=== PATIENT | male | born 1960 | race Caucasian/White ===

== ENCOUNTER 2017-01-02 14:02 | Emergency (ER) | payer MEDICARE, SELFPAY ==
[2017-01-02] MEDS ORDERED: Ondansetron 4 MG/2 ML SDV IVPUSH ONE (15:10)
[2017-01-02] MEDS ORDERED: LORazepam 2 MG/ML MDV IVPUSH ONE (15:11)
[2017-01-02] MEDS ORDERED: HYDROmorphone 0.5 MG/0.5 ML Syringe IVPUSH ONE (15:11)
--- NOTE | 2017-01-02 15:13 | EDM.PDOC ---
ED HPI GI/ABDOMINAL - General Chief Complaint: Abdominal Pain Stated Complaint: ABD PAIN Time Seen by Provider: 01/02/17 15:12 Source: Reports: Patient History Limitations: Reports: No limitations - History of Present Illness INITIAL COMMENTS - FREE TEXT/NARRATIVE: pt arrived with pain in the rt upper abdomn. Timing/Duration: Reports: Hour(s):, Getting worse Location: other (pain in left flank area.) Quality: Reports: stabbing, throbbing Associated Symptoms: Reports: malaise - Related Data Allergies/ADRs: Allergies Allergy/AdvReac Type Severity Reaction Status Date / Time No Known Allergies Allergy Verified 07/23/14 21:16 Home Meds: Home Meds ARIPiprazole [Abilify] 30 mg PO DAILY 07/23/14 [History] LORazepam [Ativan] 1 mg PO BEDTIME PRN 07/23/14 [History] buPROPion HCl [Bupropion Xl] 150 mg PO DAILY 07/23/14 [History] Cariprazine Hydrochloride [Vraylar] 4.5 mg PO DAILY 05/09/16 [History] Past Medical History HEENT History: Reports: Impaired vision Genitourinary History: Reports: Renal calculus Psychiatric History: Reports: Anxiety, Bipolar, Depression - Infectious Disease History Infectious Disease History: Reports: Chicken pox - Past Surgical History Male Surgical History: Reports: Lithotripsy (ESWL) Social & Family History - Tobacco Use Smoking Status *Q: Never Smoker Second Hand Smoke Exposure: No - Caffeine Use Caffeine Use: Reports: None - Alcohol Use Days Per Week of Alcohol Use: 0 - Recreational Drug Use Recreational Drug Use: No ED ROS GENERAL - Review of Systems Review Of Systems: See Below Constitutional: Reports: no symptoms HEENT: Reports: No symptoms Respiratory: Reports: No Symptoms Cardiovascular: Reports: No symptoms Endocrine: Reports: no symptoms GI/Abdominal: Reports: Abdominal pain, Other (Pain in rt flank area and pain in rt flank. ) ED EXAM, GI/ABD - Physical Exam Exam: See Below Text/Narrative:: Pt arrived with pain in rt upper abdoman and rt flank. Exam Limited By: No limitations General Appearance: alert, anxious Eyes: bilateral: normal appearance, EOMI Ears: normal TMs Nose: normal inspection Throat/Mouth: Normal inspection Head: atraumatic Neck: normal inspection Respiratory/Chest: no respiratory distress Cardiovascular: regular rate, rhythm GI/Abdominal: tenderness, other (pt is tender in the rt upper abdoman and rt flank) (Male) Exam: Deferred Rectal (Males) Exam: Deferred Back Exam: normal inspection Extremities: normal inspection Neurological: alert, oriented, normal cognition Psychiatric: anxious, other ( Pt is shaking and very agitated. ) Course - Vital Signs Last Recorded V/S: Last Vital Signs Temp 36.2 C 01/02/17 14:51 Pulse 81 01/02/17 17:26 Resp 18 01/02/17 14:51 BP 130/71 01/02/17 17:26 Pulse Ox 98 01/02/17 14:51 - Orders/Labs/Meds Orders: Active Orders 24 hr Category Date Time Status Abdomen Pelvis wo Cont [CT] Stat Exams 01/02/17 16:36 Taken Sodium Chloride 0.9% [Normal Saline] 1,000 ml Med 01/02/17 15:15 Active IV ASDIRECTED Sodium Chloride 0.9% [Saline Flush] Med 01/02/17 15:09 Active 10 ml FLUSH ASDIRECTED PRN Saline Lock Insert [OM.PC] Routine Oth 01/02/17 15:09 Ordered Medication Orders Sodium Chloride (Normal Saline) 1,000 mls @ 999 mls/hr IV ASDIRECTED DUANE Last Admin: 01/02/17 15:25 Dose: 999 mls/hr Sodium Chloride (Saline Flush) 10 ml FLUSH ASDIRECTED PRN PRN Reason: Keep Vein Open Last Admin: 01/02/17 17:23 Dose: 10 ml Admin: 01/02/17 15:25 Dose: 10 ml Labs: Laboratory Tests 01/02/17 01/02/17 01/02/17 Range/Units 15:13 15:13 15:51 WBC 13.1 H (4.5-11.0) K/uL RBC 5.85 (4.30-5.90) M/uL Hgb 16.2 H (12.0-15.0) g/dL Hct 46.9 (40.0-54.0) % MCV 80 (80-98) fL MCH 28 (27-31) pg MCHC 35 (32-36) % Plt Count 391 (150-400) K/uL Neut % (Auto) 86 H (36-66) % Lymph % (Auto) 9 L (24-44) % [place] % (Auto) 5 (2-6) % Eos % (Auto) 0 L (2-4) % Baso % (Auto) 0 (0-1) % Sodium 140 (140-148) mmol/L Potassium 4.4 (3.6-5.2) mmol/L Chloride 104 (100-108) mmol/L Carbon Dioxide 23 (21-32) mmol/L Anion Gap 13.0 (5.0-14.0) mmol/L BUN 14 (7-18) mg/dL Creatinine 1.7 H (0.8-1.3) mg/dL Est Cr Clr Drug Dosing 44.28 mL/min Estimated GFR (MDRD) 42 L (>60) Glucose 117 H (74-106) mg/dL Calcium 9.2 (8.5-10.1) mg/dL Total Bilirubin 0.8 (0.2-1.0) mg/dL AST 22 (15-37) U/L ALT 20 (12-78) U/L Alkaline Phosphatase 101 (46-116) U/L C-Reactive Protein 0.46 H (0.0-0.3) mg/dL Total Protein 8.4 H (6.4-8.2) g/dL Albumin 3.8 (3.4-5.0) g/dL Globulin 4.6 H (2.3-3.5) g/dL Albumin/Globulin Ratio 0.8 L (1.2-2.2) Urine Color Yellow Urine Appearance Clear Urine pH 6.0 (4.5-8.0) Ur Specific [place] 1.015 (1.008-1.030) Urine Protein Negative (NEGATIVE) mg/dL Urine Glucose (UA) Normal (NEGATIVE) mg/dL Urine Ketones 15 H (NEGATIVE) mg/dL Urine Occult Blood Large (NEGATIVE) Urine Nitrite Negative (NEGAITVE) Urine Bilirubin Negative (NEGATIVE) Urine Urobilinogen Normal (NORMAL) mg/dL Ur Leukocyte Esterase Negative (NEGATIVE) Urine RBC 10-20 H (0-5) Urine WBC 0-5 (0-5) Ur Epithelial Cells Rare Amorphous Sediment Not seen Urine Bacteria Few Urine Mucus Numerous Urine Opiates Screen (NEGATIVE) Ur Oxycodone Screen (NEGATIVE) Urine Methadone Screen (NEGATIVE) Ur Propoxyphene Screen (NEGATIVE) Ur Barbiturates Screen (NEGATIVE) Ur Tricyclics Screen (NEGATIVE) Ur Phencyclidine Scrn (NEGATIVE) Ur Amphetamine Screen (NEGATIVE) U Methamphetamines Scrn (NEGATIVE) Urine MDMA Screen (NEGATIVE) U Benzodiazepines Scrn (NEGATIVE) U Cocaine Metab Screen (NEGATIVE) U Marijuana (THC) Screen (NEGATIVE) 01/02/17 Range/Units 15:51 WBC (4.5-11.0) K/uL RBC (4.30-5.90) M/uL Hgb (12.0-15.0) g/dL Hct (40.0-54.0) % MCV (80-98) fL MCH (27-31) pg MCHC (32-36) % Plt Count (150-400) K/uL Neut % (Auto) (36-66) % Lymph % (Auto) (24-44) % Bradford % (Auto) (2-6) % Eos % (Auto) (2-4) % Baso % (Auto) (0-1) % Sodium (140-148) mmol/L Potassium (3.6-5.2) mmol/L Chloride (100-108) mmol/L Carbon Dioxide (21-32) mmol/L Anion Gap (5.0-14.0) mmol/L BUN (7-18) mg/dL Creatinine (0.8-1.3) mg/dL Est Cr Clr Drug Dosing mL/min Estimated GFR (MDRD) (>60) Glucose (74-106) mg/dL Calcium (8.5-10.1) mg/dL Total Bilirubin (0.2-1.0) mg/dL AST (15-37) U/L ALT (12-78) U/L Alkaline Phosphatase (46-116) U/L C-Reactive Protein (0.0-0.3) mg/dL Total Protein (6.4-8.2) g/dL Albumin (3.4-5.0) g/dL Globulin (2.3-3.5) g/dL Albumin/Globulin Ratio (1.2-2.2) Urine Color Urine Appearance Urine pH (4.5-8.0) Ur Specific [place] (1.008-1.030) Urine Protein (NEGATIVE) mg/dL Urine Glucose (UA) (NEGATIVE) mg/dL Urine Ketones (NEGATIVE) mg/dL Urine Occult Blood (NEGATIVE) Urine Nitrite (NEGAITVE) Urine Bilirubin (NEGATIVE) Urine Urobilinogen (NORMAL) mg/dL Ur Leukocyte Esterase (NEGATIVE) Urine RBC (0-5) Urine WBC (0-5) Ur Epithelial Cells Amorphous Sediment Urine Bacteria Urine Mucus Urine Opiates Screen Negative (NEGATIVE) Ur Oxycodone Screen Negative (NEGATIVE) Urine Methadone Screen Negative (NEGATIVE) Ur Propoxyphene Screen Negative (NEGATIVE) Ur Barbiturates Screen Negative (NEGATIVE) Ur Tricyclics Screen Negative (NEGATIVE) Ur Phencyclidine Scrn Negative (NEGATIVE) Ur Amphetamine Screen Negative (NEGATIVE) U Methamphetamines Scrn Negative (NEGATIVE) Urine MDMA Screen Negative (NEGATIVE) U Benzodiazepines Scrn Positive H (NEGATIVE) U Cocaine Metab Screen Negative (NEGATIVE) U Marijuana (THC) Screen Negative (NEGATIVE) Meds: Medications Generic Name Dose Route Start Last Admin Trade Name Freq PRN Reason Stop Dose Admin Sodium Chloride 1,000 mls @ 999 mls/hr 01/02/17 15:15 01/02/17 15:25 Normal Saline IV 999 mls/hr ASDIRECTED DUANE Administration Sodium Chloride 10 ml 01/02/17 15:09 01/02/17 17:23 Saline Flush FLUSH 10 ml ASDIRECTED PRN Administration Keep Vein Open Discontinued Medications Generic Name Dose Route Start Last Admin Trade Name Freq PRN Reason Stop Dose Admin Hydromorphone HCl 0.5 mg 01/02/17 15:11 01/02/17 15:24 Dilaudid IVPUSH 01/02/17 15:12 0.5 mg ONETIME ONE Administration Ketorolac Tromethamine 30 mg 01/02/17 17:20 01/02/17 17:23 Toradol IVPUSH 01/02/17 17:21 30 mg ONETIME ONE Administration Lorazepam 0.5 mg 01/02/17 15:11 01/02/17 15:21 Ativan IVPUSH 01/02/17 15:12 0.5 mg ONETIME ONE Administration Ondansetron HCl 4 mg 01/02/17 15:10 01/02/17 15:24 Zofran IVPUSH 01/02/17 15:11 4 mg ONETIME ONE Administration Tamsulosin HCl 0.4 mg 01/02/17 17:19 01/02/17 17:22 Flomax PO 04/06/17 17:20 0.4 mg ONETIME ONE Administration - Re-Assessments/Exams Free Text/Narrative Re-Assessment/Exam: 01/02/17 17:21 Pt arrived with pain in rt upper abdoman nd rt flank. He was very agitated on arrival. His urine showed alot of rbcs. He had a cat scan without contrast which showed a 4 mm stone in the proximal ureter. Pt was given torodol and flomax. 01/02/17 18:55 Pt has remained comfortable. will discharge at this time. 01/02/17 19:03 Pt has been out of his psych meds and he was encouraged to fill them as soon as possible. Departure - Departure Time of Disposition: 18:55 Disposition: Home, Self-Care 01 Condition: fair Clinical Impression: Ureteral calculus, right, Anxiety Instructions: Kidney Stones, [id number], Panic Attacks, [id number] Referrals: Hang Renae MD [Primary Care Provider] - Forms: ED Department Discharge Care Plan Goals: appt with Dr Renae if he does not pass the stone, strain all urine, push fluids , flomax .4 1 tab daily, torodol 10mg q6h prn for pain, rtc if pt becomes severely uncomfortable. - My Orders Last 24 Hours: My Active Orders 01/02/17 15:09 Sodium Chloride 0.9% [Saline Flush] 10 ml FLUSH ASDIRECTED PRN Saline Lock Insert [OM.PC] Routine 01/02/17 15:15 Sodium Chloride 0.9% [Normal Saline] 1,000 ml IV ASDIRECTED 01/02/17 16:36 Abdomen Pelvis wo Cont [CT] Stat - Assessment/Plan Last 24 Hours: My Active Orders 01/02/17 15:09 Sodium Chloride 0.9% [Saline Flush] 10 ml FLUSH ASDIRECTED PRN Saline Lock Insert [OM.PC] Routine 01/02/17 15:15 Sodium Chloride 0.9% [Normal Saline] 1,000 ml IV ASDIRECTED 01/02/17 16:36 Abdomen Pelvis wo Cont [CT] Stat
[2017-01-02] MEDS ORDERED: Sodium Chloride 0.9% 1,000 ML IV SCH (15:15)
[2017-01-02] MEDS: Sodium Chloride 0.9% 10 ML Syringe FLUSH PRN ×2 (15:25→17:23)
[2017-01-02] MEDS ORDERED: Tamsulosin 0.4 MG Cap.ER PO ONE (17:19)
[2017-01-02] MEDS ORDERED: Ketorolac 30 MG/ML SDV IVPUSH ONE (17:20)
[2017-01-02 17:27] VITALS: BP 130/71
== END 2017-01-02 19:10 | disposition home or self-care (01) ==
LOC: JP.ED 14:02
DX: N13.2 Hydronephrosis with renal and ureteral calculous obstruction (principal); F41.9 Anxiety disorder, unspecified; F31.9 Bipolar disorder, unspecified; F32.9 Major depressive disorder, single episode, unspecified; Z79.899 Other long term (current) drug therapy; Z87.442 Personal history of urinary calculi
CPT/HCPCS: 36415; 74176; 80053; 80305; 81001; 85025; 86140; 96361; 96374; 96375; 96376; 99284; A9270; J1170; J1885; J2060; J2405; J7040; J7050

== ENCOUNTER 2017-01-11 18:41 | Emergency (ER) | payer MEDICARE, SELFPAY ==
[2017-01-11 19:07] VITALS: BP 143/92
--- NOTE | 2017-01-11 20:31 | EDM.PDOC ---
[id number] 4d STONES Time Seen by Provider: 01/11/17 19:15 Source: Reports: Patient, Family History Limitations: Reports: No limitations - History of Present Illness INITIAL COMMENTS - FREE TEXT/NARRATIVE: 56-year-old male with intermittent right abdominal and flank pain for the past 2 weeks. A right ureteral stone was confirmed a CT scan over a week ago, he took Flomax for 5 days and occasional ketorolac but his symptoms seem to be worse today. No nausea or vomiting. He took a ketorolac earlier today and feels better now. Location: [facility] Quality: Reports: cramping Associated Symptoms: Denies: chest pain, back pain, diarrhea, nausea/vomiting - Related Data Allergies/ADRs: Allergies Allergy/AdvReac Type Severity Reaction Status Date / Time No Known Allergies Allergy Verified 07/23/14 21:16 Home Meds: Home Meds ARIPiprazole [Abilify] 30 mg PO DAILY 07/23/14 [History] LORazepam [Ativan] 1 mg PO BEDTIME PRN 07/23/14 [History] buPROPion HCl [Bupropion Xl] 150 mg PO DAILY 07/23/14 [History] Cariprazine Hydrochloride [Vraylar] 4.5 mg PO DAILY 05/09/16 [History] Past Medical History HEENT History: Reports: Impaired vision Genitourinary History: Reports: Renal calculus Psychiatric History: Reports: Anxiety, Bipolar, Depression - Infectious Disease History Infectious Disease History: Reports: Chicken pox - Past Surgical History Male Surgical History: Reports: Lithotripsy (ESWL) Social & Family History - Tobacco Use Smoking Status *Q: Never Smoker Second Hand Smoke Exposure: No - Caffeine Use Caffeine Use: Reports: None - Alcohol Use Days Per Week of Alcohol Use: 0 - Recreational Drug Use Recreational Drug Use: No ED ROS GENERAL - Review of Systems Review Of Systems: See Below Constitutional: Denies: fever, chills Respiratory: Denies: Shortness of Breath Cardiovascular: Denies: Chest pain GI/Abdominal: Reports: Abdominal pain. Denies: Constipation, Diarrhea Skin: Reports: no symptoms Psychiatric: Reports: Anxiety ED EXAM, GI/ABD - Physical Exam Exam: See Below Exam Limited By: No limitations General Appearance: alert, no apparent distress (Looks uncomfortable but not distressed) Respiratory/Chest: no respiratory distress, lungs clear Cardiovascular: regular rate, rhythm GI/Abdominal: soft, tenderness (Mild tenderness to palpation along the right abdomen but no guarding or rebound) Neurological: alert, oriented Psychiatric: anxious Skin Exam: Warm, Dry Course - Vital Signs Last Recorded V/S: Last Vital Signs Temp 97.8 F 01/11/17 19:06 Pulse 89 01/11/17 19:06 Resp 18 01/11/17 19:06 BP 143/92 H 01/11/17 19:06 Pulse Ox 98 01/11/17 19:06 - Orders/Labs/Meds Orders: Active Orders 24 hr Category Date Time Status Abdomen Pelvis wo Cont [CT] Stat Exams 01/11/17 19:30 Taken Labs: Laboratory Tests 01/11/17 01/11/17 Range/Units 19:40 19:40 WBC 6.9 (4.5-11.0) K/uL RBC 5.61 (4.30-5.90) M/uL Hgb 15.3 H (12.0-15.0) g/dL Hct 45.2 (40.0-54.0) % MCV 81 (80-98) fL MCH 27 (27-31) pg MCHC 34 (32-36) % Plt Count 314 (150-400) K/uL Neut % (Auto) 68 H (36-66) % Lymph % (Auto) 22 L (24-44) % [place] % (Auto) 9 H (2-6) % Eos % (Auto) 1 L (2-4) % Baso % (Auto) 0 (0-1) % Sodium 143 (140-148) mmol/L Potassium 3.5 L (3.6-5.2) mmol/L Chloride 104 (100-108) mmol/L Carbon Dioxide 24 (21-32) mmol/L Anion Gap 18.5 H (5.0-14.0) mmol/L BUN 13 (7-18) mg/dL Creatinine 1.2 (0.8-1.3) mg/dL Est Cr Clr Drug Dosing 62.73 mL/min Estimated GFR (MDRD) > 60 (>60) Glucose 93 (74-106) mg/dL Calcium 9.1 (8.5-10.1) mg/dL - Re-Assessments/Exams Free Text/Narrative Re-Assessment/Exam: 01/11/17 21:53 CBC and CMP were obtained which showed a stable normal creatinine and normal white blood cell count. Abdominal CT without contrast was obtained and again shows a 4 mm stone which according to radiology has a "different configuration" but is an approximately the same location. There is less hydronephrosis. I asked the patient to continue with ketorolac, I consulted urology in [place] and they're going to recheck the patient next week. He can return sooner if worsening such as fever or vomiting. Departure - Departure Time of Disposition: 20:36 Disposition: Home, Self-Care 01 Condition: good Clinical Impression: Ureteral calculus, right, Renal colic on right side Instructions: Renal Colic, [id number] Referrals: Hang Renae MD [Primary Care Provider] - Forms: ED Department Discharge Care Plan Goals: Continue your current medications and drink lots of water. Call the [facility] on Friday morning and ask for urology Department in [place]. They will be expecting you're call and will tell you when to come for an appointment. - My Orders Last 24 Hours: My Active Orders 01/11/17 19:30 Abdomen Pelvis wo Cont [CT] Stat - Assessment/Plan Last 24 Hours: My Active Orders 01/11/17 19:30 Abdomen Pelvis wo Cont [CT] Stat
== END 2017-01-11 20:37 | disposition home or self-care (01) ==
LOC: JP.ED 18:41
DX: N20.1 Calculus of ureter (principal); N23 Unspecified renal colic; F41.9 Anxiety disorder, unspecified; F31.9 Bipolar disorder, unspecified; F32.9 Major depressive disorder, single episode, unspecified; Z87.442 Personal history of urinary calculi; Z79.899 Other long term (current) drug therapy
CPT/HCPCS: 36415; 74176; 80048; 85025; 99283; 99284-25

== ENCOUNTER 2017-09-30 16:21 | Emergency (ER) | payer MEDICARE, OTHER, SELFPAY ==
[2017-09-30 17:05] VITALS: BP 144/91
--- NOTE | 2017-09-30 17:22 | EDM.PDOCBH ---
ED HPI GENERAL MEDICAL PROBLEM - General Chief Complaint: Behavioral/Psych Stated Complaint: MENTAL HEALTH PROBLEMS Time Seen by Provider: 09/30/17 17:10 Source of Information: Reports: Patient, Family, Old Records, RN History Limitations: Reports: No Limitations - History of Present Illness INITIAL COMMENTS - FREE TEXT/NARRATIVE: 57 yo male with depression is brought in to the ER today because his father has not been eating. He has been drinking OK. Has an appt with his psychiatrist for tomorrow. Has been hospitalized in the past for his depression. Is not suicidal or homicidal. Onset: Gradual Duration: Chronic Location: Reports: Generalized Quality: Reports: Other (no pain) Severity: Moderate Improves with: Reports: Eating Worsens with: Reports: Other (not eating) Context: Reports: Other (chronic depression.) Associated Symptoms: Reports: Loss of Appetite, Other (depression) Treatments SNOW SHOVELER: Reports: Other (see below) (none) - Related Data Allergies Allergy/AdvReac Type Severity Reaction Status Date / Time No Known Allergies Allergy Verified 07/23/14 21:16 Home Meds: Home Meds LORazepam [Ativan] 1 mg PO BEDTIME PRN 07/23/14 [History] buPROPion HCl [Bupropion Xl] 150 mg PO BID 07/23/14 [History] ARIPiprazole [Aripiprazole] 15 mg PO DAILY 09/30/17 [History] Divalproex Sodium [Divalproex Sodium ER] 500 mg PO TID 09/30/17 [History] Past Medical History HEENT History: Reports: Impaired Vision Genitourinary History: Reports: Renal Calculus Psychiatric History: Reports: Anxiety, Bipolar, Depression - Infectious Disease History Infectious Disease History: Reports: Chicken Pox - Past Surgical History Male Surgical History: Reports: Lithotripsy (ESWL) Social & Family History - Tobacco Use Smoking Status *Q: Never Smoker Second Hand Smoke Exposure: No - Caffeine Use Caffeine Use: Reports: Coffee - Alcohol Use Days Per Week of Alcohol Use: 0 - Recreational Drug Use Recreational Drug Use: No ED ROS GENERAL - Review of Systems Review Of Systems: See Below Constitutional: Reports: Decreased Appetite HEENT: Reports: No Symptoms Respiratory: Reports: No Symptoms Cardiovascular: Reports: No Symptoms Endocrine: Reports: No Symptoms GI/Abdominal: Reports: Anorexia : Reports: No Symptoms Musculoskeletal: Reports: No Symptoms Skin: Reports: No Symptoms Psychiatric: Reports: Anxiety (better after Ativan at home before coming to the ER), Depression ED EXAM, BEHAVIORAL HEALTH - Physical Exam Exam: See Below Exam Limited By: No Limitations General Appearance: Alert, WD/WN, No Apparent Distress Eye Exam: Bilateral Eye: Normal Inspection Ears: Normal External Exam, Normal Canal, Hearing Grossly Normal, Normal TMs Nose: Normal Inspection, Normal Mucosa, No Blood Throat/Mouth: Normal Inspection, Normal Lips, Normal Oropharynx, Normal Voice, No Airway Compromise Head: Atraumatic, Normocephalic Neck: Normal Inspection, Supple, Non-Tender Respiratory/Chest: No Respiratory Distress, Lungs Clear, Normal Breath Sounds, No Accessory Muscle Use Cardiovascular: Regular Rate, Rhythm, No Edema GI/Abdominal: Normal Bowel Sounds, Soft, Non-Tender Back Exam: Normal Inspection Extremities: Normal Inspection, Normal Range of Motion, Non-Tender, No Pedal Edema Neurological: Alert, Normal Mood/Affect, CN II-XII Intact, Normal Cognition, No Motor/Sensory Deficits, Oriented x 3 Psychiatric: Alert, Normal Cognition, Normal Mood, Oriented, Flat Affect Skin Exam: Warm, Dry, Intact, Normal color, No rash COURSE, BEHAVIORAL HEALTH COMP - Course Vital Signs: Last Vital Signs Temp 37.2 C 09/30/17 17:05 Pulse 81 09/30/17 17:05 Resp 16 09/30/17 17:05 BP 144/91 H 09/30/17 17:05 Pulse Ox 92 L 09/30/17 17:05 Orthostatic Blood Pressure [ 101/67 Standing] Orthostatic Blood Pressure [ 107/78 Sitting] Orthostatic Blood Pressure [ 111/68 Supine] Orders, Labs, Meds: Active Orders 24 hr Category Date Time Status Orthostatic Vital Signs [RC] ASDIRECTED Care 09/30/17 17:17 Active Medical Clearance: 09/30/17 17:35 Orthostats normal in the ER Departure - Departure Time of Disposition: 17:35 Disposition: Home, Self-Care 01 Condition: Good Clinical Impression: Anorexia Depression Qualifiers: Depression Type: major depressive disorder Major depression recurrence: recurrent Active/Remission status: currently active Major depression episode severity: moderate Qualified Code(s): F33.1 - Major depressive disorder, recurrent, moderate - Discharge Information Referrals: Siena Chou NP [Primary Care Provider] - Forms: ED Department Discharge - My Orders Last 24 Hours: My Active Orders 09/30/17 17:17 Orthostatic Vital Signs [RC] ASDIRECTED - Assessment/Plan Last 24 Hours: My Active Orders 09/30/17 17:17 Orthostatic Vital Signs [RC] ASDIRECTED
== END 2017-09-30 17:56 | disposition home or self-care (01) ==
LOC: JP.ED 16:21
DX: F33.1 Major depressive disorder, recurrent, moderate (principal); R63.0 Anorexia
CPT/HCPCS: 99283; 99284

== ENCOUNTER 2017-10-22 19:26 | Emergency (ER) | payer MEDICARE, OTHER, SELFPAY ==
[2017-10-22 19:35] VITALS: BP 110/81
--- NOTE | 2017-10-22 20:09 | EDM.PDOCBH ---
ED HPI GENERAL MEDICAL PROBLEM - General Chief Complaint: Behavioral/Psych Stated Complaint: EVAL Time Seen by Provider: 10/22/17 19:50 Source of Information: Reports: Patient, Family, Old Records History Limitations: Reports: No Limitations - History of Present Illness INITIAL COMMENTS - FREE TEXT/NARRATIVE: 57 yo male with bipolar depression presents with worsening depression. Hasn't worked in a month, not taking care of his own hygiene needs or taking care of his apartment. Lives alone. Crying a lot. Not suicidal. Here with family who would like him placed, he likewise is also in agreement with wanting placement. Onset: Gradual Duration: Week(s):, Chronic, Getting Worse Severity: Severe Improves with: Reports: None Worsens with: Reports: Other (? 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: Other (see below) (Regular meds) - Related Data Allergies Allergy/AdvReac Type Severity Reaction Status Date / Time No Known Allergies Allergy Verified 10/22/17 19:35 Home Meds: Home Meds LORazepam [Ativan] 1 mg PO BEDTIME PRN 07/23/14 [History] buPROPion HCl [Bupropion Xl] 150 mg PO BID 07/23/14 [History] Divalproex Sodium [Divalproex Sodium ER] 500 mg PO BID 09/30/17 [History] Past Medical History HEENT History: Reports: Impaired Vision Genitourinary History: Reports: Renal Calculus Psychiatric History: Reports: Anxiety, Bipolar, Depression - Infectious Disease History Infectious Disease History: Reports: Chicken Pox - Past Surgical History HEENT Surgical History: Reports: Cataract Surgery Male Surgical History: Reports: Lithotripsy (ESWL) Social & Family History - Tobacco Use Smoking Status *Q: Never Smoker Second Hand Smoke Exposure: No - Caffeine Use Caffeine Use: Reports: Coffee Other Caffeine Use: every once in awhile - Alcohol Use Days Per Week of Alcohol Use: 0 - Recreational Drug Use Recreational Drug Use: No ED ROS GENERAL - Review of Systems Review Of Systems: See Below Constitutional: Reports: Decreased Appetite HEENT: Reports: No Symptoms Respiratory: Reports: No Symptoms Cardiovascular: Reports: No Symptoms Endocrine: Reports: No Symptoms GI/Abdominal: Reports: No Symptoms : Reports: No Symptoms Musculoskeletal: Reports: No Symptoms Skin: Reports: No Symptoms Neurological: Reports: No Symptoms Psychiatric: Reports: Depression. Denies: Hallucinations, Homicidal Ideation, Suicidal Ideation ED EXAM, BEHAVIORAL HEALTH - Physical Exam Exam: See Below Exam Limited By: No Limitations General Appearance: Alert, WD/WN, No Apparent Distress Eye Exam: Bilateral Eye: Normal Inspection Ears: Normal External Exam, Normal Canal, Hearing Grossly Normal, Normal TMs Nose: Normal Inspection, Normal Mucosa, No Blood Throat/Mouth: Normal Inspection, Normal Lips, Normal Oropharynx, Normal Voice, No Airway Compromise, Other (bad teeth and missing teeth) Head: Atraumatic, Normocephalic Neck: Normal Inspection, Supple, Non-Tender Respiratory/Chest: No Respiratory Distress, Lungs Clear, Normal Breath Sounds, No Accessory Muscle Use Cardiovascular: Regular Rate, Rhythm, No Edema GI/Abdominal: Normal Bowel Sounds, Soft, Non-Tender, No Distention Extremities: Normal Inspection, Normal Range of Motion, Non-Tender, No Pedal Edema Neurological: Alert, Normal Mood/Affect, CN II-XII Intact, Normal Cognition, Normal Gait, No Motor/Sensory Deficits, Oriented x 3 Psychiatric: Alert, Normal Cognition, Oriented, Depressed Mood, Flat Affect Skin Exam: Warm, Dry, Intact, Normal color, No rash COURSE, BEHAVIORAL HEALTH COMP - Course Vital Signs: Last Vital Signs Temp 36.5 C 10/22/17 19:32 Pulse 104 H 10/22/17 19:32 Resp 16 10/22/17 19:32 BP 110/81 10/22/17 19:32 Pulse Ox 97 10/22/17 19:32 Orders, Labs, Meds: Active Orders 24 hr Category Date Time Status Divalproex Sodium [Depakote ER] Med 10/22/17 22:39 Once 500 mg PO ONETIME ONE Laboratory Tests 10/22/17 10/22/17 10/22/17 Range/Units 20:01 20:01 20:04 WBC 7.9 (4.5-11.0) K/uL RBC 5.45 (4.30-5.90) M/uL Hgb 14.7 (12.0-15.0) g/dL Hct 44.5 (40.0-54.0) % MCV 82 (80-98) fL MCH 27 (27-31) pg MCHC 33 (32-36) % Plt Count 295 (150-400) K/uL Sodium 142 (140-148) mmol/L Potassium 3.7 (3.6-5.2) mmol/L Chloride 104 (100-108) mmol/L Carbon Dioxide 28 (21-32) mmol/L Anion Gap 10.2 (5.0-14.0) mmol/L BUN 21 H D (7-18) mg/dL Creatinine 1.4 H (0.8-1.3) mg/dL Est Cr Clr Drug Dosing 54.96 mL/min Estimated GFR (MDRD) 52 L (>60) Glucose 137 H (74-106) mg/dL Calcium 9.1 (8.5-10.1) mg/dL TSH, Ultra Sensitive 3.955 H (0.358-3.740) uIU/mL Urine Color Urine Appearance Urine pH (4.5-8.0) Ur Specific H[place]ins (1.008-1.030) Urine Protein (NEGATIVE) mg/dL Urine Glucose (UA) (NEGATIVE) mg/dL Urine Ketones (NEGATIVE) mg/dL Urine Occult Blood (NEGATIVE) Urine Nitrite (NEGAITVE) Urine Bilirubin (NEGATIVE) Urine Urobilinogen (NORMAL) mg/dL Ur Leukocyte Esterase (NEGATIVE) Urine RBC (0-5) Urine WBC (0-5) Ur Epithelial Cells Amorphous Sediment Urine Bacteria Urine Mucus Urine Opiates Screen (NEGATIVE) Ur Oxycodone Screen (NEGATIVE) Urine Methadone Screen (NEGATIVE) Ur Propoxyphene Screen (NEGATIVE) Ur Barbiturates Screen (NEGATIVE) Valproic Acid (50.0-100.0) ug/mL Ur Tricyclics Screen (NEGATIVE) Ur Phencyclidine Scrn (NEGATIVE) Ur Amphetamine Screen (NEGATIVE) U Methamphetamines Scrn (NEGATIVE) Urine MDMA Screen (NEGATIVE) U Benzodiazepines Scrn (NEGATIVE) U Cocaine Metab Screen (NEGATIVE) U Marijuana (THC) Screen (NEGATIVE) Ethyl Alcohol mg/dL 10/22/17 10/22/17 10/22/17 Range/Units 20:11 20:29 21:00 WBC (4.5-11.0) K/uL RBC (4.30-5.90) M/uL Hgb (12.0-15.0) g/dL Hct (40.0-54.0) % MCV (80-98) fL MCH (27-31) pg MCHC (32-36) % Plt Count (150-400) K/uL Sodium (140-148) mmol/L Potassium (3.6-5.2) mmol/L Chloride (100-108) mmol/L Carbon Dioxide (21-32) mmol/L Anion Gap (5.0-14.0) mmol/L BUN (7-18) mg/dL Creatinine (0.8-1.3) mg/dL Est Cr Clr Drug Dosing mL/min Estimated GFR (MDRD) (>60) Glucose (74-106) mg/dL Calcium (8.5-10.1) mg/dL TSH, Ultra Sensitive (0.358-3.740) uIU/mL Urine Color Yellow Urine Appearance Clear Urine pH 8.0 (4.5-8.0) Ur Specific [place] 1.015 (1.008-1.030) Urine Protein Negative (NEGATIVE) mg/dL Urine Glucose (UA) Normal (NEGATIVE) mg/dL Urine Ketones Negative (NEGATIVE) mg/dL Urine Occult Blood Negative (NEGATIVE) Urine Nitrite Negative (NEGAITVE) Urine Bilirubin Negative (NEGATIVE) Urine Urobilinogen Normal (NORMAL) mg/dL Ur Leukocyte Esterase Negative (NEGATIVE) Urine RBC 0-5 (0-5) Urine WBC 0-5 (0-5) Ur Epithelial Cells Rare Amorphous Sediment Not seen Urine Bacteria Not seen Urine Mucus Moderate Urine Opiates Screen (NEGATIVE) Ur Oxycodone Screen (NEGATIVE) Urine Methadone Screen (NEGATIVE) Ur Propoxyphene Screen (NEGATIVE) Ur Barbiturates Screen (NEGATIVE) Valproic Acid 15.3 L (50.0-100.0) ug/mL Ur Tricyclics Screen (NEGATIVE) Ur Phencyclidine Scrn (NEGATIVE) Ur Amphetamine Screen (NEGATIVE) U Methamphetamines Scrn (NEGATIVE) Urine MDMA Screen (NEGATIVE) U Benzodiazepines Scrn (NEGATIVE) U Cocaine Metab Screen (NEGATIVE) U Marijuana (THC) Screen (NEGATIVE) Ethyl Alcohol < 3 mg/dL 10/22/17 Range/Units 21:00 WBC (4.5-11.0) K/uL RBC (4.30-5.90) M/uL Hgb (12.0-15.0) g/dL Hct (40.0-54.0) % MCV (80-98) fL MCH (27-31) pg MCHC (32-36) % Plt Count (150-400) K/uL Sodium (140-148) mmol/L Potassium (3.6-5.2) mmol/L Chloride (100-108) mmol/L Carbon Dioxide (21-32) mmol/L Anion Gap (5.0-14.0) mmol/L BUN (7-18) mg/dL Creatinine (0.8-1.3) mg/dL Est Cr Clr Drug Dosing mL/min Estimated GFR (MDRD) (>60) Glucose (74-106) mg/dL Calcium (8.5-10.1) mg/dL TSH, Ultra Sensitive (0.358-3.740) uIU/mL Urine Color Urine Appearance Urine pH (4.5-8.0) Ur Specific [place] (1.008-1.030) Urine Protein (NEGATIVE) mg/dL Urine Glucose (UA) (NEGATIVE) mg/dL Urine Ketones (NEGATIVE) mg/dL Urine Occult Blood (NEGATIVE) Urine Nitrite (NEGAITVE) Urine Bilirubin (NEGATIVE) Urine Urobilinogen (NORMAL) mg/dL Ur Leukocyte Esterase (NEGATIVE) Urine RBC (0-5) Urine WBC (0-5) Ur Epithelial Cells Amorphous Sediment Urine Bacteria Urine Mucus Urine Opiates Screen Negative (NEGATIVE) Ur Oxycodone Screen Negative (NEGATIVE) Urine Methadone Screen Negative (NEGATIVE) Ur Propoxyphene Screen Negative (NEGATIVE) Ur Barbiturates Screen Negative (NEGATIVE) Valproic Acid (50.0-100.0) ug/mL Ur Tricyclics Screen Negative (NEGATIVE) Ur Phencyclidine Scrn Negative (NEGATIVE) Ur Amphetamine Screen Negative (NEGATIVE) U Methamphetamines Scrn Negative (NEGATIVE) Urine MDMA Screen Negative (NEGATIVE) U Benzodiazepines Scrn Positive H (NEGATIVE) U Cocaine Metab Screen Negative (NEGATIVE) U Marijuana (THC) Screen Negative (NEGATIVE) Ethyl Alcohol mg/dL Medical Clear[facility]: 10[facility]22[facility]17 22:[facility] Son to transport. Depakote ER [address] Pinto, psychiatry, accepting @ [id number] Departure - Departure Time of Disposition: 22:45 Disposition: DC/Tfer to Psych Hosp/Unit 65 Condition: Fair Clinical Impression: Bipolar disorder Depression Qualifiers: Depression Type: major depressive disorder Major depression recurrence: recurrent Active/Remission status: currently active Major depression episode severity: moderate Qualified Code(s): F33.1 - Major depressive disorder, recurrent, moderate - Discharge Information Referrals: Hang Renae MD [Primary Care Provider] - Forms: ED Department Discharge - My Orders Last 24 Hours: My Active Orders 10/22/17 22:39 Divalproex Sodium [Depakote ER] 500 mg PO ONETIME ONE - Assessment/Plan Last 24 Hours: My Active Orders 10/22/17 22:39 Divalproex Sodium [Depakote ER] 500 mg PO ONETIME ONE
[2017-10-22] MEDS ORDERED: Divalproex Sodium 250 MG Tab.ER PO ONE (22:39)
== END 2017-10-22 23:19 ==
LOC: JP.ED 19:26
DX: F33.1 Major depressive disorder, recurrent, moderate (principal); Z79.899 Other long term (current) drug therapy
CPT/HCPCS: 36415; 80048; 80164; 80305; 81001; 84443; 85027; 99284; 99285; A9270; G0480

== ENCOUNTER 2017-12-01 21:40 | Emergency (ER) | payer MEDICARE ==
[2017-12-01 22:14] VITALS: BP 182/108
--- NOTE | 2017-12-01 23:13 | EDM.PDOCBH ---
ED HPI GENERAL MEDICAL PROBLEM - General Chief Complaint: Behavioral/Psych Stated Complaint: EVAL Time Seen by Provider: 12/01/17 22:43 Source of Information: Reports: Patient, Old Records, RN Notes Reviewed History Limitations: Reports: Other (Patient's status makes it hard to interview him well, tangentiality) - History of Present Illness INITIAL COMMENTS - FREE TEXT/NARRATIVE: brought by police, cooperative Chief complaint Increased speech and behavior, please recall by family to bring him here for assessment History of present illness 57-year-old male, has been living with a friend, family has noticed increased speech agitation behavior prompted them to call the police. Patient feels fine, does not want to be here does not want to be hospitalized, is not suicidal. History of bipolar disorder, recently hospitalized at [facility] He does feel that his and the family are against him at times No hallucinations No drug use Does not see a psychiatrist regularly but does have a regular primary care provider - Related Data Allergies Allergy/AdvReac Type Severity Reaction Status Date / Time No Known Allergies Allergy Verified 10/22/17 19:35 Home Meds: Home Meds LORazepam [Ativan] 1 mg PO BEDTIME PRN 07/23/14 [History] buPROPion HCl [Bupropion Xl] 150 mg PO BID 07/23/14 [History] Divalproex Sodium [Divalproex Sodium ER] 500 mg PO BID 09/30/17 [History] Past Medical History HEENT History: Reports: Impaired Vision Genitourinary History: Reports: Renal Calculus Psychiatric History: Reports: Anxiety, Bipolar, Depression - Infectious Disease History Infectious Disease History: Reports: Chicken Pox - Past Surgical History HEENT Surgical History: Reports: Cataract Surgery Male Surgical History: Reports: Lithotripsy (ESWL) Social & Family History - Tobacco Use Smoking Status *Q: Never Smoker Second Hand Smoke Exposure: No - Caffeine Use Caffeine Use: Reports: Coffee Other Caffeine Use: every once in awhile - Alcohol Use Days Per Week of Alcohol Use: 0 - Recreational Drug Use Recreational Drug Use: No ED ROS GENERAL - Review of Systems Review Of Systems: ROS reveals no pertinent complaints other than HPI. Psychiatric: Reports: Agitation, Other (increased speech and activity). Denies : Hallucinations ED EXAM, BEHAVIORAL HEALTH - Physical Exam Exam: See Below Exam Limited By: Other (patient's pressured speech and tangentiality make it difficult to evaluate him) General Appearance: Alert, No Apparent Distress, Other (when I initially went in the room he was falling asleep on the stretcher, but once he is awake he talked nonstop for nearly 10 minutes, vital signs normal except for elevated blood pressure) Eye Exam: Bilateral Eye: Normal Inspection Ears: Normal External Exam Throat/Mouth: Normal Inspection Respiratory/Chest: No Respiratory Distress Cardiovascular: Normal Peripheral Pulses Extremities: Normal Inspection Neurological: Alert, Normal Gait Psychiatric: Restless, Flight of Ideas, Other (some degree of persecution expressed). No: Homicidal Thoughts, Mormon Delusions, Suicidal Plan, Suicidal Thoughts, Auditory Hallucinations, Visual Hallucinations, Threatening Behavior Skin Exam: Warm, Dry, Normal color, No rash COURSE, BEHAVIORAL HEALTH COMP - Course Vital Signs: Last Vital Signs Temp 36 C 12/01/17 22:13 Pulse 88 12/01/17 22:13 Resp 18 12/01/17 22:13 BP 182/108 H 12/01/17 22:13 Pulse Ox 98 12/01/17 22:13 Re-Assessment/Re-Exam: 57-year-old male with increased pressure speech, tangentiality, flight of ideas , and perhaps some degree of paranoia. He does not want psychiatric treatment and is in no danger to himself or others at this point. Diffley not suicidal. cannot be held Can be discharged by the situation changes he may need to be reevaluated Departure - Departure Time of Disposition: 23:10 Disposition: Home, Self-Care 01 Condition: Undetermined Clinical Impression: Hypomanic episode, History of bipolar disorder - Discharge Information Instructions: Bipolar 1 Disorder Referrals: Hang Renae MD [Primary Care Provider] - Forms: ED Department Discharge Additional Instructions: at this point, it appears that you are having some of the symptoms of hypomania which is the opposite of depression. As long as you are not a danger to yourself or others, you cannot be hospitalized involuntarily. Should the situation change she may need to be reassessed and main require hospitalization if you to become a danger to herself or others. Please make an appointment with your provider/physician within the next week to get rechecked. Return to emergency if you're findingherself depressed or at risk of harming herself
== END 2017-12-01 23:21 | disposition home or self-care (01) ==
LOC: JP.ED 21:40
DX: F30.8 Other manic episodes (principal); Z79.899 Other long term (current) drug therapy
CPT/HCPCS: 99285

== ENCOUNTER 2017-12-04 01:23 | Emergency (ER) | payer MEDICARE ==
[2017-12-04] MEDS ORDERED: LORazepam 2 MG/ML SDV IVPUSH ONE (02:15)
[2017-12-04] MEDS ORDERED: Haloperidol Lactate 5 MG/ML SDV IM ONE (02:17)
[2017-12-04] MEDS ORDERED: diphenhydrAMINE 50 MG/ML SDV IM ONE (02:17)
--- NOTE | 2017-12-04 02:20 | EDM.PDOCBH ---
<OfficerAndres - Last Filed: 12/04/17 03:05> ED HPI GENERAL MEDICAL PROBLEM - General Chief Complaint: Behavioral/Psych Stated Complaint: EVAL-VIA LAW ENFORCEMENT Time Seen by Provider: 12/04/17 02:02 Source of Information: Reports: Patient, Police, RN Notes Reviewed History Limitations: Reports: Altered Mental Status - History of Present Illness INITIAL COMMENTS - FREE TEXT/NARRATIVE: 57-year-old gentleman brought in by law enforcement for psychiatric evaluation, initial report from law enforcement states this gentleman did not feel safe at home I went to the [facility] upon arrival there asked him to call law enforcement for help initial assessment by law enforcement felt that he was in a manic mood was brought to the emergency department for further evaluation he has grandiose ideas flight of ideas very tangential pressured speech difficulty follow so no review of systems no history is obtained from him - Related Data Allergies Allergy/AdvReac Type Severity Reaction Status Date / Time No Known Allergies Allergy Verified 12/04/17 01:55 Home Meds: Home Meds LORazepam [Ativan] 1 mg PO BEDTIME PRN 07/23/14 [History] buPROPion HCl [Bupropion Xl] 150 mg PO BID 07/23/14 [History] Divalproex Sodium [Divalproex Sodium ER] 500 mg PO BID 09/30/17 [History] Past Medical History HEENT History: Reports: Impaired Vision Genitourinary History: Reports: Renal Calculus Psychiatric History: Reports: Anxiety, Bipolar, Depression - Infectious Disease History Infectious Disease History: Reports: Chicken Pox - Past Surgical History HEENT Surgical History: Reports: Cataract Surgery Male Surgical History: Reports: Lithotripsy (ESWL) Social & Family History - Tobacco Use Smoking Status *Q: Never Smoker Second Hand Smoke Exposure: No - Caffeine Use Caffeine Use: Reports: Coffee Other Caffeine Use: every once in awhile - Alcohol Use Days Per Week of Alcohol Use: 0 - Recreational Drug Use Recreational Drug Use: No ED ROS GENERAL - Review of Systems Review Of Systems: Unable To Obtain ED EXAM, BEHAVIORAL HEALTH - Physical Exam Exam: See Below Exam Limited By: Physical Impairment General Appearance: Anxious, Other (Manic) Respiratory/Chest: No Respiratory Distress Psychiatric: Alert, Restless, Flight of Ideas, Anabaptism Delusions, Tangential Thoughts, Grandiose Thoughts, Pressured Speech, Paranoid Thoughts. No: Homicidal Thoughts, Suicidal Plan, Suicidal Thoughts, Auditory Hallucinations, Visual Hallucinations, Threatening Behavior COURSE, BEHAVIORAL HEALTH COMP - Course Vital Signs: Last Vital Signs Temp 35.4 C 12/04/17 07:05 Pulse 61 12/04/17 07:05 Resp 14 12/04/17 07:05 BP 98/68 12/04/17 07:05 Pulse Ox 98 12/04/17 07:05 Orders, Labs, Meds: Laboratory Tests 12/04/17 12/04/17 12/04/17 Range/Units 02:15 04:43 04:43 WBC 4.9 (4.5-11.0) K/uL RBC 4.45 (4.30-5.90) M/uL Hgb 12.2 D (12.0-15.0) g/dL Hct 37.2 L (40.0-54.0) % MCV 84 (80-98) fL MCH 27 (27-31) pg MCHC 33 (32-36) % Plt Count 193 (150-400) K/uL Neut % (Auto) 54 (36-66) % Lymph % (Auto) 31 (24-44) % [place] % (Auto) 13 H (2-6) % Eos % (Auto) 2 (2-4) % Baso % (Auto) 0 (0-1) % Sodium 142 (140-148) mmol/L Potassium 4.1 (3.6-5.2) mmol/L Chloride 106 (100-108) mmol/L Carbon Dioxide 30 (21-32) mmol/L Anion Gap 5.6 (5.0-14.0) mmol/L BUN 17 (7-18) mg/dL Creatinine 1.2 (0.8-1.3) mg/dL Est Cr Clr Drug Dosing 62.16 mL/min Estimated GFR (MDRD) > 60 (>60) Glucose 71 L (74-106) mg/dL Calcium 8.1 L (8.5-10.1) mg/dL Total Bilirubin 0.3 D (0.2-1.0) mg/dL AST 33 (15-37) U/L ALT 25 (12-78) U/L Alkaline Phosphatase 44 L (46-116) U/L Ammonia (11-32) mmol/L Total Protein 6.3 L (6.4-8.2) g/dL Albumin 2.9 L (3.4-5.0) g/dL Globulin 3.4 (2.3-3.5) g/dL Albumin/Globulin Ratio 0.9 L (1.2-2.2) Urine Color Urine Appearance Urine pH (4.5-8.0) Ur Specific Ramey (1.008-1.030) Urine Protein (NEGATIVE) mg/dL Urine Glucose (UA) (NEGATIVE) mg/dL Urine Ketones (NEGATIVE) mg/dL Urine Occult Blood (NEGATIVE) Urine Nitrite (NEGAITVE) Urine Bilirubin (NEGATIVE) Urine Urobilinogen (NORMAL) mg/dL Ur Leukocyte Esterase (NEGATIVE) Urine RBC (0-5) Urine WBC (0-5) Ur Epithelial Cells Amorphous Sediment Urine Bacteria Urine Mucus Urine Opiates Screen Negative (NEGATIVE) Ur Oxycodone Screen Negative (NEGATIVE) Urine Methadone Screen Negative (NEGATIVE) Ur Propoxyphene Screen Negative (NEGATIVE) Ur Barbiturates Screen Negative (NEGATIVE) Ur Tricyclics Screen Negative (NEGATIVE) Ur Phencyclidine Scrn Negative (NEGATIVE) Ur Amphetamine Screen Negative (NEGATIVE) U Methamphetamines Scrn Negative (NEGATIVE) Urine MDMA Screen Negative (NEGATIVE) U Benzodiazepines Scrn Negative (NEGATIVE) U Cocaine Metab Screen Negative (NEGATIVE) U Marijuana (THC) Screen Negative (NEGATIVE) Ethyl Alcohol mg/dL 12/04/17 12/04/17 12/04/17 Range/Units 04:43 04:43 08:21 WBC (4.5-11.0) K/uL RBC (4.30-5.90) M/uL Hgb (12.0-15.0) g/dL Hct (40.0-54.0) % MCV (80-98) fL MCH (27-31) pg MCHC (32-36) % Plt Count (150-400) K/uL Neut % (Auto) (36-66) % Lymph % (Auto) (24-44) % [place] % (Auto) (2-6) % Eos % (Auto) (2-4) % Baso % (Auto) (0-1) % Sodium (140-148) mmol/L Potassium (3.6-5.2) mmol/L Chloride (100-108) mmol/L Carbon Dioxide (21-32) mmol/L Anion Gap (5.0-14.0) mmol/L BUN (7-18) mg/dL Creatinine (0.8-1.3) mg/dL Est Cr Clr Drug Dosing mL/min Estimated GFR (MDRD) (>60) Glucose (74-106) mg/dL Calcium (8.5-10.1) mg/dL Total Bilirubin (0.2-1.0) mg/dL AST (15-37) U/L ALT (12-78) U/L Alkaline Phosphatase (46-116) U/L Ammonia 3 L (11-32) mmol/L Total Protein (6.4-8.2) g/dL Albumin (3.4-5.0) g/dL Globulin (2.3-3.5) g/dL Albumin/Globulin Ratio (1.2-2.2) Urine Color Yellow Urine Appearance Clear Urine pH 6.0 (4.5-8.0) Ur Specific [place]y 1.015 (1.008-1.030) Urine Protein Negative (NEGATIVE) mg/dL Urine Glucose (UA) Normal (NEGATIVE) mg/dL Urine Ketones Negative (NEGATIVE) mg/dL Urine Occult Blood Negative (NEGATIVE) Urine Nitrite Negative (NEGAITVE) Urine Bilirubin Negative (NEGATIVE) Urine Urobilinogen Normal (NORMAL) mg/dL Ur Leukocyte Esterase Negative (NEGATIVE) Urine RBC 0-5 (0-5) Urine WBC 0-5 (0-5) Ur Epithelial Cells Not seen Amorphous Sediment Rare Urine Bacteria Not seen Urine Mucus Not seen Urine Opiates Screen (NEGATIVE) Ur Oxycodone Screen (NEGATIVE) Urine Methadone Screen (NEGATIVE) Ur Propoxyphene Screen (NEGATIVE) Ur Barbiturates Screen (NEGATIVE) Ur Tricyclics Screen (NEGATIVE) Ur Phencyclidine Scrn (NEGATIVE) Ur Amphetamine Screen (NEGATIVE) U Methamphetamines Scrn (NEGATIVE) Urine MDMA Screen (NEGATIVE) U Benzodiazepines Scrn (NEGATIVE) U Cocaine Metab Screen (NEGATIVE) U Marijuana (THC) Screen (NEGATIVE) Ethyl Alcohol < 3 mg/dL Medications Discontinued Medications Generic Name Dose Route Start Last Admin Trade Name Freq PRN Reason Stop Dose Admin Diphenhydramine HCl 50 mg 12/04/17 02:17 12/04/17 03:04 Benadryl IM 12/04/17 02:18 50 mg ONETIME ONE Administration Haloperidol Lactate 5 mg 12/04/17 02:17 12/04/17 03:05 Haldol IM 12/04/17 02:18 5 mg ONETIME ONE Administration Lorazepam 2 mg 12/04/17 03:19 12/04/17 02:30 Ativan IM 12/04/17 03:20 2 mg ONETIME ONE Administration Re-Assessment/Re-Exam: Patient refused treatment as well as laboratory investigation, I felt he was a danger to himself in danger to ER staff with his acute angelica elected to sedate him combination Haldol, Ativan and Benadryl, law enforcement was called for additional support. Departure - Departure Disposition: Home, Self-Care 01 Clinical Impression: History of bipolar disorder, Hypomanic episode - Discharge Information Referrals: PCP,None [Primary Care Provider] - Forms: ED Department Discharge <Ernesto Corcoran - Last Filed: 12/04/17 11:20> Departure - Departure Time of Disposition: 11:25 Condition: Good
[2017-12-04] MEDS ORDERED: LORazepam 2 MG/ML SDV IM ONE (03:19)
[2017-12-04 07:06] VITALS: BP 98/68
== END 2017-12-04 11:38 | disposition home or self-care (01) ==
LOC: JP.ED 01:23
DX: F31.9 Bipolar disorder, unspecified (principal); Z79.899 Other long term (current) drug therapy
CPT/HCPCS: 36415; 80053; 80305; 81001; 82140; 85025; 96372; 99283; 99285; G0480; J1200; J1630; J2060

== ENCOUNTER 2017-12-06 06:00 | Emergency (ER) | payer MEDICARE ==
--- NOTE | 2017-12-06 06:34 | EDM.PDOCBH ---
<Ernesto Corcoran - Last Filed: 12/06/17 08:49> ED HPI GENERAL MEDICAL PROBLEM - General Chief Complaint: Behavioral/Psych Stated Complaint: EVAL Time Seen by Provider: 12/06/17 06:22 - Related Data Allergies Allergy/AdvReac Type Severity Reaction Status Date / Time No Known Allergies Allergy Verified 12/06/17 06:13 Home Meds: Home Meds LORazepam [Ativan] 1 mg PO BEDTIME PRN 07/23/14 [History] buPROPion HCl [Bupropion Xl] 150 mg PO BID 07/23/14 [History] Divalproex Sodium [Divalproex Sodium ER] 500 mg PO BID 09/30/17 [History] COURSE, BEHAVIORAL HEALTH COMP - Course Vital Signs: Last Vital Signs Temp 96.8 F 12/06/17 09:00 Pulse 83 12/06/17 09:00 Resp 18 12/06/17 09:00 BP 147/95 H 12/06/17 09:00 Pulse Ox 98 12/06/17 09:00 Orders, Labs, Meds: Laboratory Tests 12/06/17 12/06/17 12/06/17 Range/Units 06:40 06:40 06:40 WBC 8.0 (4.5-11.0) K/uL RBC 4.88 (4.30-5.90) M/uL Hgb 13.4 (12.0-15.0) g/dL Hct 40.5 (40.0-54.0) % MCV 83 (80-98) fL MCH 28 (27-31) pg MCHC 33 (32-36) % Plt Count 234 (150-400) K/uL Neut % (Auto) 58 (36-66) % Lymph % (Auto) 26 (24-44) % [place] % (Auto) 14 H (2-6) % Eos % (Auto) 2 (2-4) % Baso % (Auto) 0 (0-1) % Sodium 138 L (140-148) mmol/L Potassium 4.3 (3.6-5.2) mmol/L Chloride 103 (100-108) mmol/L Carbon Dioxide 28 (21-32) mmol/L Anion Gap 11.3 (5.0-14.0) mmol/L BUN 15 (7-18) mg/dL Creatinine 1.1 (0.8-1.3) mg/dL Est Cr Clr Drug Dosing 60.55 mL/min Estimated GFR (MDRD) > 60 (>60) Glucose 95 (74-106) mg/dL Calcium 8.5 (8.5-10.1) mg/dL Total Bilirubin 0.4 (0.2-1.0) mg/dL AST 73 H D (15-37) U/L ALT 40 (12-78) U/L Alkaline Phosphatase 55 (46-116) U/L Total Protein 7.5 (6.4-8.2) g/dL Albumin 3.5 (3.4-5.0) g/dL Globulin 4.0 H (2.3-3.5) g/dL Albumin/Globulin Ratio 0.9 L (1.2-2.2) Urine Color Urine Appearance Urine pH (4.5-8.0) Ur Specific [place] (1.008-1.030) Urine Protein (NEGATIVE) mg/dL Urine Glucose (UA) (NEGATIVE) mg/dL Urine Ketones (NEGATIVE) mg/dL Urine Occult Blood (NEGATIVE) Urine Nitrite (NEGAITVE) Urine Bilirubin (NEGATIVE) Urine Urobilinogen (NORMAL) mg/dL Ur Leukocyte Esterase (NEGATIVE) Urine RBC (0-5) Urine WBC (0-5) Ur Epithelial Cells Amorphous Sediment Urine Bacteria Urine Mucus Urine Opiates Screen (NEGATIVE) Ur Oxycodone Screen (NEGATIVE) Urine Methadone Screen (NEGATIVE) Ur Propoxyphene Screen (NEGATIVE) Ur Barbiturates Screen (NEGATIVE) Ur Tricyclics Screen (NEGATIVE) Ur Phencyclidine Scrn (NEGATIVE) Ur Amphetamine Screen (NEGATIVE) U Methamphetamines Scrn (NEGATIVE) Urine MDMA Screen (NEGATIVE) U Benzodiazepines Scrn (NEGATIVE) U Cocaine Metab Screen (NEGATIVE) U Marijuana (THC) Screen (NEGATIVE) Ethyl Alcohol 3 mg/dL 12/06/17 12/06/17 Range/Units 07:12 07:12 WBC (4.5-11.0) K/uL RBC (4.30-5.90) M/uL Hgb (12.0-15.0) g/dL Hct (40.0-54.0) % MCV (80-98) fL MCH (27-31) pg MCHC (32-36) % Plt Count (150-400) K/uL Neut % (Auto) (36-66) % Lymph % (Auto) (24-44) % [place] % (Auto) (2-6) % Eos % (Auto) (2-4) % Baso % (Auto) (0-1) % Sodium (140-148) mmol/L Potassium (3.6-5.2) mmol/L Chloride (100-108) mmol/L Carbon Dioxide (21-32) mmol/L Anion Gap (5.0-14.0) mmol/L BUN (7-18) mg/dL Creatinine (0.8-1.3) mg/dL Est Cr Clr Drug Dosing mL/min Estimated GFR (MDRD) (>60) Glucose (74-106) mg/dL Calcium (8.5-10.1) mg/dL Total Bilirubin (0.2-1.0) mg/dL AST (15-37) U/L ALT (12-78) U/L Alkaline Phosphatase (46-116) U/L Total Protein (6.4-8.2) g/dL Albumin (3.4-5.0) g/dL Globulin (2.3-3.5) g/dL Albumin/Globulin Ratio (1.2-2.2) Urine Color Yellow Urine Appearance Clear Urine pH 6.0 (4.5-8.0) Ur Specific [place] 1.015 (1.008-1.030) Urine Protein Negative (NEGATIVE) mg/dL Urine Glucose (UA) Normal (NEGATIVE) mg/dL Urine Ketones 15 H (NEGATIVE) mg/dL Urine Occult Blood Negative (NEGATIVE) Urine Nitrite Negative (NEGAITVE) Urine Bilirubin Negative (NEGATIVE) Urine Urobilinogen Normal (NORMAL) mg/dL Ur Leukocyte Esterase Negative (NEGATIVE) Urine RBC 0-5 (0-5) Urine WBC 0-5 (0-5) Ur Epithelial Cells Rare Amorphous Sediment Not seen Urine Bacteria Not seen Urine Mucus Few Urine Opiates Screen Negative (NEGATIVE) Ur Oxycodone Screen Negative (NEGATIVE) Urine Methadone Screen Negative (NEGATIVE) Ur Propoxyphene Screen Negative (NEGATIVE) Ur Barbiturates Screen Negative (NEGATIVE) Ur Tricyclics Screen Negative (NEGATIVE) Ur Phencyclidine Scrn Negative (NEGATIVE) Ur Amphetamine Screen Negative (NEGATIVE) U Methamphetamines Scrn Negative (NEGATIVE) Urine MDMA Screen Negative (NEGATIVE) U Benzodiazepines Scrn Positive H (NEGATIVE) U Cocaine Metab Screen Negative (NEGATIVE) U Marijuana (THC) Screen Negative (NEGATIVE) Ethyl Alcohol mg/dL Medications Discontinued Medications Generic Name Dose Route Start Last Admin Trade Name Ronald PRN Reason Stop Dose Admin Bupropion HCl 150 mg 12/06/17 11:59 12/06/17 13:30 Wellbutrin Xl PO 12/06/17 12:00 150 mg ONETIME ONE Administration Divalproex Sodium 500 mg 12/06/17 11:58 12/06/17 13:29 Depakote Er PO 12/06/17 11:59 500 mg ONETIME ONE Administration Haloperidol Lactate 5 mg 12/06/17 12:00 12/06/17 13:30 Haldol IM 12/06/17 12:01 5 mg ONETIME ONE Administration Lorazepam 1 mg 12/06/17 09:35 12/06/17 13:29 Ativan PO 12/06/17 09:36 1 mg ONETIME ONE Administration Departure - Departure Disposition: DC/Tfer to Psych Hosp/Unit 65 Condition: Fair Clinical Impression: Manic behavior, Bipolar disorder Schizophrenia Qualifiers: Schizophrenia type: disorganized schizophrenia Qualified Code(s): F20.1 - Disorganized schizophrenia - Discharge Information Referrals: Hang Renae MD [Primary Care Provider] - Forms: ED Department Discharge <OfficerAndres - Last Filed: 12/06/17 17:06> ED HPI GENERAL MEDICAL PROBLEM - General Source of Information: Reports: Patient, Old Records, Police, RN Notes Reviewed History Limitations: Reports: Altered Mental Status - History of Present Illness INITIAL COMMENTS - FREE TEXT/NARRATIVE: 57-year-old gentleman presents emergency department today via law enforcement he was evaluated by myself 2 days prior history of bipolar disease currently not taking his medications he was manic at that time he was incoherent tangential difficult to understand having delusions he was sedated at that time blood work was done was unremarkable. He is brought in by law enforcement today as he is been to multiple local communities as well as the [place] area he has been placed on no trespass on several businesses and band from the premises including businesses in [place] as well as [facility], At this time he is very belligerent threatening to merary me stating that he will ask his director of customer acquisition file malpractice against myself. He is refusing any treatment or care refuses medications refuses blood work. 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 Past Medical History HEENT History: Reports: Impaired Vision Genitourinary History: Reports: Renal Calculus Psychiatric History: Reports: Anxiety, Bipolar, Depression - Infectious Disease History Infectious Disease History: Reports: Chicken Pox - Past Surgical History HEENT Surgical History: Reports: Cataract Surgery Male Surgical History: Reports: Lithotripsy (ESWL) Social & Family History - Tobacco Use Smoking Status *Q: Never Smoker Second Hand Smoke Exposure: No - Caffeine Use Caffeine Use: Reports: Coffee Other Caffeine Use: every once in awhile - Alcohol Use Days Per Week of Alcohol Use: 0 - Recreational Drug Use Recreational Drug Use: No ED ROS GENERAL - Review of Systems Review Of Systems: Unable To Obtain ED EXAM, BEHAVIORAL HEALTH - Physical Exam Exam: See Below Exam Limited By: Physical Impairment General Appearance: Other (Manic) Eye Exam: Bilateral Eye: Normal Inspection Ears: Normal External Exam Nose: Normal Inspection Throat/Mouth: Normal Inspection Head: Atraumatic, Normocephalic Respiratory/Chest: No Respiratory Distress Psychiatric: Alert, Restless, Tearful, Agitated, Disoriented, Flight of Ideas, Restorationist Delusions, Tangential Thoughts, Visual Hallucinations, Grandiose Thoughts, Pressured Speech, Paranoid Thoughts. No: Homicidal Thoughts, Suicidal Plan, Suicidal Thoughts, Auditory Hallucinations COURSE, BEHAVIORAL HEALTH COMP - Course Orders, Labs, Meds: Laboratory Tests 12/06/17 12/06/17 12/06/17 Range/Units 06:40 06:40 06:40 WBC 8.0 (4.5-11.0) K/uL RBC 4.88 (4.30-5.90) M/uL Hgb 13.4 (12.0-15.0) g/dL Hct 40.5 (40.0-54.0) % MCV 83 (80-98) fL MCH 28 (27-31) pg MCHC 33 (32-36) % Plt Count 234 (150-400) K/uL Neut % (Auto) 58 (36-66) % Lymph % (Auto) 26 (24-44) % [place] % (Auto) 14 H (2-6) % Eos % (Auto) 2 (2-4) % Baso % (Auto) 0 (0-1) % Sodium 138 L (140-148) mmol/L Potassium 4.3 (3.6-5.2) mmol/L Chloride 103 (100-108) mmol/L Carbon Dioxide 28 (21-32) mmol/L Anion Gap 11.3 (5.0-14.0) mmol/L BUN 15 (7-18) mg/dL Creatinine 1.1 (0.8-1.3) mg/dL Est Cr Clr Drug Dosing 60.55 mL/min Estimated GFR (MDRD) > 60 (>60) Glucose 95 (74-106) mg/dL Calcium 8.5 (8.5-10.1) mg/dL Total Bilirubin 0.4 (0.2-1.0) mg/dL AST 73 H D (15-37) U/L ALT 40 (12-78) U/L Alkaline Phosphatase 55 (46-116) U/L Total Protein 7.5 (6.4-8.2) g/dL Albumin 3.5 (3.4-5.0) g/dL Globulin 4.0 H (2.3-3.5) g/dL Albumin/Globulin Ratio 0.9 L (1.2-2.2) Urine Color Urine Appearance Urine pH (4.5-8.0) Ur Specific [place] (1.008-1.030) Urine Protein (NEGATIVE) mg/dL Urine Glucose (UA) (NEGATIVE) mg/dL Urine Ketones (NEGATIVE) mg/dL Urine Occult Blood (NEGATIVE) Urine Nitrite (NEGAITVE) Urine Bilirubin (NEGATIVE) Urine Urobilinogen (NORMAL) mg/dL Ur Leukocyte Esterase (NEGATIVE) Urine RBC (0-5) Urine WBC (0-5) Ur Epithelial Cells Amorphous Sediment Urine Bacteria Urine Mucus Urine Opiates Screen (NEGATIVE) Ur Oxycodone Screen (NEGATIVE) Urine Methadone Screen (NEGATIVE) Ur Propoxyphene Screen (NEGATIVE) Ur Barbiturates Screen (NEGATIVE) Ur Tricyclics Screen (NEGATIVE) Ur Phencyclidine Scrn (NEGATIVE) Ur Amphetamine Screen (NEGATIVE) U Methamphetamines Scrn (NEGATIVE) Urine MDMA Screen (NEGATIVE) U Benzodiazepines Scrn (NEGATIVE) U Cocaine Metab Screen (NEGATIVE) U Marijuana (THC) Screen (NEGATIVE) Ethyl Alcohol 3 mg/dL 12/06/17 12/06/17 Range/Units 07:12 07:12 WBC (4.5-11.0) K/uL RBC (4.30-5.90) M/uL Hgb (12.0-15.0) g/dL Hct (40.0-54.0) % MCV (80-98) fL MCH (27-31) pg MCHC (32-36) % Plt Count (150-400) K/uL Neut % (Auto) (36-66) % Lymph % (Auto) (24-44) % [place] % (Auto) (2-6) % Eos % (Auto) (2-4) % Baso % (Auto) (0-1) % Sodium (140-148) mmol/L Potassium (3.6-5.2) mmol/L Chloride (100-108) mmol/L Carbon Dioxide (21-32) mmol/L Anion Gap (5.0-14.0) mmol/L BUN (7-18) mg/dL Creatinine (0.8-1.3) mg/dL Est Cr Clr Drug Dosing mL/min Estimated GFR (MDRD) (>60) Glucose (74-106) mg/dL Calcium (8.5-10.1) mg/dL Total Bilirubin (0.2-1.0) mg/dL AST (15-37) U/L ALT (12-78) U/L Alkaline Phosphatase (46-116) U/L Total Protein (6.4-8.2) g/dL Albumin (3.4-5.0) g/dL Globulin (2.3-3.5) g/dL Albumin/Globulin Ratio (1.2-2.2) Urine Color Yellow Urine Appearance Clear Urine pH 6.0 (4.5-8.0) Ur Specific [place] 1.015 (1.008-1.030) Urine Protein Negative (NEGATIVE) mg/dL Urine Glucose (UA) Normal (NEGATIVE) mg/dL Urine Ketones 15 H (NEGATIVE) mg/dL Urine Occult Blood Negative (NEGATIVE) Urine Nitrite Negative (NEGAITVE) Urine Bilirubin Negative (NEGATIVE) Urine Urobilinogen Normal (NORMAL) mg/dL Ur Leukocyte Esterase Negative (NEGATIVE) Urine RBC 0-5 (0-5) Urine WBC 0-5 (0-5) Ur Epithelial Cells Rare Amorphous Sediment Not seen Urine Bacteria Not seen Urine Mucus Few Urine Opiates Screen Negative (NEGATIVE) Ur Oxycodone Screen Negative (NEGATIVE) Urine Methadone Screen Negative (NEGATIVE) Ur Propoxyphene Screen Negative (NEGATIVE) Ur Barbiturates Screen Negative (NEGATIVE) Ur Tricyclics Screen Negative (NEGATIVE) Ur Phencyclidine Scrn Negative (NEGATIVE) Ur Amphetamine Screen Negative (NEGATIVE) U Methamphetamines Scrn Negative (NEGATIVE) Urine MDMA Screen Negative (NEGATIVE) U Benzodiazepines Scrn Positive H (NEGATIVE) U Cocaine Metab Screen Negative (NEGATIVE) U Marijuana (THC) Screen Negative (NEGATIVE) Ethyl Alcohol mg/dL Medications Discontinued Medications Generic Name Dose Route Start Last Admin Trade Name Freq PRN Reason Stop Dose Admin Bupropion HCl 150 mg 12/06/17 11:59 12/06/17 13:30 Wellbutrin Xl PO 12/06/17 12:00 150 mg ONETIME ONE Administration Divalproex Sodium 500 mg 12/06/17 11:58 12/06/17 13:29 Depakote Er PO 12/06/17 11:59 500 mg ONETIME ONE Administration Haloperidol Lactate 5 mg 12/06/17 12:00 12/06/17 13:30 Haldol IM 12/06/17 12:01 5 mg ONETIME ONE Administration Lorazepam 1 mg 12/06/17 09:35 12/06/17 13:29 Ativan PO 12/06/17 09:36 1 mg ONETIME ONE Administration Departure - Departure Time of Disposition: 17:06 Condition: Poor
[2017-12-06 09:01] VITALS: BP 147/95
[2017-12-06] MEDS ORDERED: LORazepam 1 MG Tab PO ONE (09:35)
[2017-12-06] MEDS ORDERED: Divalproex Sodium 250 MG Tab.ER PO ONE (11:58)
[2017-12-06] MEDS ORDERED: buPROPion 150 MG Tab.ER PO ONE (11:59)
[2017-12-06] MEDS ORDERED: Haloperidol Lactate 5 MG/ML SDV IM ONE (12:00)
== END 2017-12-06 13:32 ==
LOC: JP.ED 06:00
DX: F31.9 Bipolar disorder, unspecified (principal); F20.1 Disorganized schizophrenia
CPT/HCPCS: 36415; 80053; 80305; 81001; 85025; 96372; 99285; A9270; G0480; J1630

== ENCOUNTER 2019-01-05 11:39 | Emergency (ER) | payer MEDICARE, MEDICAID ==
[2019-01-05 11:55] VITALS: BP 156/108
--- NOTE | 2019-01-05 12:25 | EDM.PDOC ---
<Shanice Gonsalez - Last Filed: 01/05/19 15:29> ED HPI GENERAL MEDICAL PROBLEM - General Chief Complaint: Behavioral/Psych Stated Complaint: MENTAL EVEL Time Seen by Provider: 01/05/19 12:25 Source of Information: Reports: Patient, Other (jacinto armas counselor. ) History Limitations: Reports: No Limitations - History of Present Illness INITIAL COMMENTS - FREE TEXT/NARRATIVE: pt arrived with a history of being out of control for a couple of weeks. He saw his counselor Jacinto bowman who sent him to the ER and felt he needn,t inpatient treatment for medication management. Onset: Gradual, Other (Past 2 weks. pt has been out of control. The police have been called several times in stores whene he has been arguing about various things. He has not been compative. ) Duration: Day(s): Location: Reports: Generalized Associated Symptoms: Reports: No Other Symptoms - Related Data Allergies Allergy/AdvReac Type Severity Reaction Status Date / Time No Known Allergies Allergy Verified 12/06/17 06:13 Home Meds: Home Meds Divalproex Sodium [Divalproex Sodium ER] 1,250 mg PO BEDTIME 09/30/17 [History] Levothyroxine [Synthroid] 50 mcg PO ACBREAKFAST 01/05/19 [History] Past Medical History HEENT History: Reports: Impaired Vision Genitourinary History: Reports: Renal Calculus Psychiatric History: Reports: Anxiety, Bipolar, Depression Endocrine/Metabolic History: Reports: Hypothyroidism - Infectious Disease History Infectious Disease History: Reports: Chicken Pox - Past Surgical History HEENT Surgical History: Reports: Cataract Surgery Male Surgical History: Reports: Lithotripsy (ESWL) Social & Family History - Tobacco Use Smoking Status *Q: Never Smoker - Caffeine Use Caffeine Use: Reports: None Other Caffeine Use: every once in awhile - Recreational Drug Use Recreational Drug Use: No ED ROS GENERAL - Review of Systems Review Of Systems: See Below Constitutional: Reports: No Symptoms HEENT: Reports: No Symptoms Respiratory: Reports: No Symptoms Endocrine: Reports: No Symptoms GI/Abdominal: Reports: No Symptoms : Reports: No Symptoms Musculoskeletal: Reports: No Symptoms Skin: Reports: No Symptoms Neurological: Reports: No Symptoms Psychiatric: Reports: Agitation, Anxiety, Mood Lability - Physical Exam Exam: See Below Text/Narrative:: pt is not feeling cooperative regarding a exam. He is feeling well and states he has been eating well. He has not been sleeping. Exam Limited By: No Limitations General Appearance: Alert, No Apparent Distress, Anxious Ears: Normal External Exam Nose: Normal Inspection Head Exam: Atraumatic Respiratory/Chest: No Respiratory Distress Neuro Exam (Abbreviated): Alert Psychiatric: Anxious, Other (pt is obviously very manic) Course - Vital Signs Last Recorded V/S: Last Vital Signs Temp 96.9 F 01/05/19 11:54 Pulse 106 H 01/05/19 11:54 Resp 20 01/05/19 11:54 BP 156/108 H 01/05/19 11:54 Pulse Ox 99 01/05/19 11:54 - Orders/Labs/Meds Labs: Laboratory Tests 01/05/19 01/05/19 01/05/19 Range/Units 12:30 12:30 12:30 WBC 6.0 (4.5-11.0) K/uL RBC 4.35 (4.30-5.90) M/uL Hgb 12.1 (12.0-15.0) g/dL Hct 38.1 L (40.0-54.0) % MCV 88 (80-98) fL MCH 28 (27-31) pg MCHC 32 (32-36) % Plt Count 231 (150-400) K/uL Neut % (Auto) 65 (36-66) % Lymph % (Auto) 21 L (24-44) % [place] % (Auto) 14 H (2-6) % Eos % (Auto) 1 L (2-4) % Baso % (Auto) 0 (0-1) % Sodium 140 (140-148) mmol/L Potassium 4.1 (3.6-5.2) mmol/L Chloride 103 (100-108) mmol/L Carbon Dioxide 29 (21-32) mmol/L Anion Gap 8.3 (5.0-14.0) mmol/L BUN 25 H D (7-18) mg/dL Creatinine 1.1 (0.8-1.3) mg/dL Est Cr Clr Drug Dosing 66.77 mL/min Estimated GFR (MDRD) > 60 (>60) Glucose 112 H (74-106) mg/dL Calcium 9.4 (8.5-10.1) mg/dL Total Bilirubin 0.4 (0.2-1.0) mg/dL AST 37 (15-37) U/L ALT 18 (12-78) U/L Alkaline Phosphatase 50 (46-116) U/L Total Protein 7.8 (6.4-8.2) g/dL Albumin 3.5 (3.4-5.0) g/dL Globulin 4.3 H (2.3-3.5) g/dL Albumin/Globulin Ratio 0.8 L (1.2-2.2) TSH, Ultra Sensitive (0.358-3.740) uIU/mL Urine Color Urine Appearance Urine pH (4.5-8.0) Ur Specific [place] (1.008-1.030) Urine Protein (NEGATIVE) mg/dL Urine Glucose (UA) (NEGATIVE) mg/dL Urine Ketones (NEGATIVE) mg/dL Urine Occult Blood (NEGATIVE) Urine Nitrite (NEGAITVE) Urine Bilirubin (NEGATIVE) Urine Urobilinogen (NORMAL) mg/dL Ur Leukocyte Esterase (NEGATIVE) Urine RBC (0-5) Urine WBC (0-5) Ur Epithelial Cells Amorphous Sediment Urine Bacteria Urine Mucus Urine Opiates Screen (NEGATIVE) Ur Oxycodone Screen (NEGATIVE) Urine Methadone Screen (NEGATIVE) Ur Propoxyphene Screen (NEGATIVE) Ur Barbiturates Screen (NEGATIVE) Valproic Acid 87.1 (50.0-100.0) ug/mL Ur Tricyclics Screen (NEGATIVE) Ur Phencyclidine Scrn (NEGATIVE) Ur Amphetamine Screen (NEGATIVE) U Methamphetamines Scrn (NEGATIVE) Urine MDMA Screen (NEGATIVE) U Benzodiazepines Scrn (NEGATIVE) U Cocaine Metab Screen (NEGATIVE) U Marijuana (THC) Screen (NEGATIVE) Ethyl Alcohol mg/dL 01/05/19 01/05/19 01/05/19 Range/Units 12:30 12:34 13:56 WBC (4.5-11.0) K/uL RBC (4.30-5.90) M/uL Hgb (12.0-15.0) g/dL Hct (40.0-54.0) % MCV (80-98) fL MCH (27-31) pg MCHC (32-36) % Plt Count (150-400) K/uL Neut % (Auto) (36-66) % Lymph % (Auto) (24-44) % [place] % (Auto) (2-6) % Eos % (Auto) (2-4) % Baso % (Auto) (0-1) % Sodium (140-148) mmol/L Potassium (3.6-5.2) mmol/L Chloride (100-108) mmol/L Carbon Dioxide (21-32) mmol/L Anion Gap (5.0-14.0) mmol/L BUN (7-18) mg/dL Creatinine (0.8-1.3) mg/dL Est Cr Clr Drug Dosing mL/min Estimated GFR (MDRD) (>60) Glucose (74-106) mg/dL Calcium (8.5-10.1) mg/dL Total Bilirubin (0.2-1.0) mg/dL AST (15-37) U/L ALT (12-78) U/L Alkaline Phosphatase (46-116) U/L Total Protein (6.4-8.2) g/dL Albumin (3.4-5.0) g/dL Globulin (2.3-3.5) g/dL Albumin/Globulin Ratio (1.2-2.2) TSH, Ultra Sensitive 2.008 (0.358-3.740) uIU/mL Urine Color Yellow Urine Appearance Slightly cloudy Urine pH 5.0 (4.5-8.0) Ur Specific [place] 1.025 (1.008-1.030) Urine Protein Negative (NEGATIVE) mg/dL Urine Glucose (UA) Normal (NEGATIVE) mg/dL Urine Ketones 50 H (NEGATIVE) mg/dL Urine Occult Blood Negative (NEGATIVE) Urine Nitrite Negative (NEGAITVE) Urine Bilirubin Negative (NEGATIVE) Urine Urobilinogen Normal (NORMAL) mg/dL Ur Leukocyte Esterase Negative (NEGATIVE) Urine RBC 5-10 H (0-5) Urine WBC Not seen (0-5) Ur Epithelial Cells Not seen Amorphous Sediment Not seen Urine Bacteria Not seen Urine Mucus Many Urine Opiates Screen (NEGATIVE) Ur Oxycodone Screen (NEGATIVE) Urine Methadone Screen (NEGATIVE) Ur Propoxyphene Screen (NEGATIVE) Ur Barbiturates Screen (NEGATIVE) Valproic Acid (50.0-100.0) ug/mL Ur Tricyclics Screen (NEGATIVE) Ur Phencyclidine Scrn (NEGATIVE) Ur Amphetamine Screen (NEGATIVE) U Methamphetamines Scrn (NEGATIVE) Urine MDMA Screen (NEGATIVE) U Benzodiazepines Scrn (NEGATIVE) U Cocaine Metab Screen (NEGATIVE) U Marijuana (THC) Screen (NEGATIVE) Ethyl Alcohol < 3 mg/dL 01/05/19 Range/Units 13:56 WBC (4.5-11.0) K/uL RBC (4.30-5.90) M/uL Hgb (12.0-15.0) g/dL Hct (40.0-54.0) % MCV (80-98) fL MCH (27-31) pg MCHC (32-36) % Plt Count (150-400) K/uL Neut % (Auto) (36-66) % Lymph % (Auto) (24-44) % [place] % (Auto) (2-6) % Eos % (Auto) (2-4) % Baso % (Auto) (0-1) % Sodium (140-148) mmol/L Potassium (3.6-5.2) mmol/L Chloride (100-108) mmol/L Carbon Dioxide (21-32) mmol/L Anion Gap (5.0-14.0) mmol/L BUN (7-18) mg/dL Creatinine (0.8-1.3) mg/dL Est Cr Clr Drug Dosing mL/min Estimated GFR (MDRD) (>60) Glucose (74-106) mg/dL Calcium (8.5-10.1) mg/dL Total Bilirubin (0.2-1.0) mg/dL AST (15-37) U/L ALT (12-78) U/L Alkaline Phosphatase (46-116) U/L Total Protein (6.4-8.2) g/dL Albumin (3.4-5.0) g/dL Globulin (2.3-3.5) g/dL Albumin/Globulin Ratio (1.2-2.2) TSH, Ultra Sensitive (0.358-3.740) uIU/mL Urine Color Urine Appearance Urine pH (4.5-8.0) Ur Specific [place] (1.008-1.030) Urine Protein (NEGATIVE) mg/dL Urine Glucose (UA) (NEGATIVE) mg/dL Urine Ketones (NEGATIVE) mg/dL Urine Occult Blood (NEGATIVE) Urine Nitrite (NEGAITVE) Urine Bilirubin (NEGATIVE) Urine Urobilinogen (NORMAL) mg/dL Ur Leukocyte Esterase (NEGATIVE) Urine RBC (0-5) Urine WBC (0-5) Ur Epithelial Cells Amorphous Sediment Urine Bacteria Urine Mucus Urine Opiates Screen Negative (NEGATIVE) Ur Oxycodone Screen Negative (NEGATIVE) Urine Methadone Screen Negative (NEGATIVE) Ur Propoxyphene Screen Negative (NEGATIVE) Ur Barbiturates Screen Negative (NEGATIVE) Valproic Acid (50.0-100.0) ug/mL Ur Tricyclics Screen Negative (NEGATIVE) Ur Phencyclidine Scrn Negative (NEGATIVE) Ur Amphetamine Screen Negative (NEGATIVE) U Methamphetamines Scrn Negative (NEGATIVE) Urine MDMA Screen Negative (NEGATIVE) U Benzodiazepines Scrn Negative (NEGATIVE) U Cocaine Metab Screen Negative (NEGATIVE) U Marijuana (THC) Screen Negative (NEGATIVE) Ethyl Alcohol mg/dL Meds: Medications Discontinued Medications Generic Name Dose Route Start Last Admin Trade Name Freq PRN Reason Stop Dose Admin Lorazepam 1 mg 01/05/19 12:52 01/05/19 14:47 Ativan PO 01/05/19 12:53 Not Given ONETIME ONE - Re-Assessments/Exams Free Text/Narrative Re-Assessment/Exam: 01/05/19 15:35 pt has normal labs. his drug screen is neg, his etoh is neg. Departure - Departure Disposition: DC/Tfer to Psych Hosp/Unit 65 Clinical Impression: Bipolar disorder - Discharge Information Referrals: PCP,None [Primary Care Provider] - Forms: ED Department Discharge Care Plan Goals: Patient will be transferred to [facility] under a 72 hour hold. <Delbert Steele - Last Filed: 01/05/19 21:19> Course - Re-Assessments/Exams Free Text/Narrative Re-Assessment/Exam: 01/05/19 20:18 Patient care turned over from Dr. Gonsalez pending placement. Patient was accepted at [facility]. She did become adamant that he didn't have to go at the special request of the livingstonr and his chief dsp engineer of his worship. He is obviously persistently manic so was put on a hold. He has had 3 health professional see him today, one his longtime consular, all agreeing that he needs this inpatient treatment. 01/05/19 21:17 At the request of EMS, I reevaluated the patient prior to discharge. His angelica seems to be mildly escalating, he wants to talk to the mayor and his dsp engineer before being discharged. He refused medications but is not violent. He eventually settled down and was agreeable to transfer although he was still upset. He insisted that of his dsp engineer could be talk to, he would explain why he doesn't need to go. Shortly after the patient left the dsp engineer did show up and commented "thank God, he has needed this for several weeks". Departure - Departure Time of Disposition: 19:41 Condition: Good
[2019-01-05] MEDS ORDERED: LORazepam 1 MG Tab PO ONE (12:52)
== END 2019-01-05 20:25 ==
LOC: JP.ED 11:39
DX: F31.9 Bipolar disorder, unspecified (principal); F41.9 Anxiety disorder, unspecified; E03.9 Hypothyroidism, unspecified
CPT/HCPCS: 36415; 80053; 80164; 80305; 81001; 84443; 85025; 99285; G0480

== ENCOUNTER 2020-12-22 06:32 | Day surgery (SDC) | payer MEDICARE, MEDICAID ==
[2020-12-22] MEDS ORDERED: Sodium Chloride 0.9% 1,000 ML IV SCH (07:00)
[2020-12-22] MEDS ORDERED: Midazolam 1 MG/ML 2 ML SDV ONE (07:24)
[2020-12-22] MEDS ORDERED: Propofol 200 MG/20 ML SDV ONE (07:24)
[2020-12-22] MEDS ORDERED: fentaNYL 100 MCG/2 ML SDV ONE (07:24)
[2020-12-22 09:16] VITALS: PULSE 89
[2020-12-22 09:29] VITALS: BP 151/96
--- NOTE | 2020-12-22 14:24 | OR ---
DATE OF PROCEDURE: SURGEON: Conor Avery MD PROCEDURE: Colonoscopy. FINDINGS: Descending colon polyp, approximately 5 mm, and completely removed using cold biopsy forceps. COMPLICATIONS: None. INFORMATION TECHNOLOGY ASSOCIATE: None. ANESTHESIA: MAC. PREOPERATIVE DIAGNOSIS: Screening colonoscopy. POSTOPERATIVE DIAGNOSIS: Screening colonoscopy. RISKS: Risks, benefits, alternatives, and limitations including but not limited to infection, bleeding, false positives, and false negatives were explained to the patient who wished to proceed. PROCEDURE IN DETAIL: The patient was placed in left lateral decubitus position. Digital rectal exam was performed without abnormality. The scope was introduced and advanced atraumatically to the ileocecal valve. A photo was taken. The scope was brought back to the ascending, transverse, descending colon, and retroflexed. The aforementioned polyp was identified and completely removed. The patient had what appeared to be 2 or 3 probable forming diverticula. No abnormalities on retroflexion. Greater than 8 minutes spent removing the scope. The prep was acceptable. Approximately 90% of luminal surface could be seen. No other abnormalities noted. The patient tolerated the procedure well. Conor Avery MD /[id number]
== END 2020-12-22 09:40 | disposition home or self-care (01) ==
LOC: JP.SDS 06:32
PROVIDERS: ATTEND Surgery
DX: Z12.11 Encounter for screening for malignant neoplasm of colon (principal); D12.4 Benign neoplasm of descending colon; Z88.1 Allergy status to other antibiotic agents
CPT/HCPCS: 49083; 88305; J2250; J2704; J3010; J7030

== ENCOUNTER 2021-06-10 10:45 | Emergency (ER) | payer MEDICARE, MEDICAID ==
--- NOTE | 2021-06-10 12:03 | EDM.PDOC ---
ED HPI GENERAL MEDICAL PROBLEM - General Chief Complaint: Neurological Problem Stated Complaint: VIA [facility] Time Seen by Provider: 06/10/21 12:03 Source of Information: Reports: Patient, RN History Limitations: Reports: No Limitations - History of Present Illness INITIAL COMMENTS - FREE TEXT/NARRATIVE: Fadi is a 61 year old male whom lives in own apartment in the area and was in a normal state of health before going to [employer] around 7-8pm last evening. Fadi denies any fall, injury or difficulty with activity before an during grocery store visit. Fadi reports driving back to his apartment and abruptly unable to lift his right or left legs (due to weakness (heavy sensation), unable to get out of his vehicle. Fadi did not call for help last night therefore, sat in his vehicle at night long. Fadi report shaking every where mostly bilateral legs with slight upper extremity weakness which has improved. Fadi reports left leg is improving but right leg is still very weak and feels like a weight on his leg. Fadi denies difficulty with urination and his not had a BM since onset of leg weakness. Fadi denies any other acute illness or symptoms of illness this past week. Fadi has reported increasing shortness of breath with activity for the last 2-3 days, per nursing staff but jsut reported shortness of breath while trying to move around in vehicle overnight. Fadi denies back or leg pain at this time. - Related Data Allergies Allergy/AdvReac Type Severity Reaction Status Date / Time amoxicillin Allergy Itching Verified 06/10/21 10:56 Home Meds: Home Meds Divalproex Sodium [Divalproex Sodium ER] 1,000 mg PO BEDTIME 09/30/17 [History] Levothyroxine [Synthroid] 50 mcg PO ACBREAKFAST 01/05/19 [History] OLANZapine [Olanzapine] 20 mg PO BEDTIME 06/10/21 [History] Past Medical History HEENT History: Reports: Impaired Vision Cardiovascular History: Reports: None Respiratory History: Reports: None Gastrointestinal History: Reports: None Genitourinary History: Reports: Renal Calculus Musculoskeletal History: Reports: None Neurological History: Reports: None Psychiatric History: Reports: Anxiety, Bipolar, Depression Endocrine/Metabolic History: Reports: Hypothyroidism Hematologic History: Reports: None Dermatologic History: Reports: None - Infectious Disease History Infectious Disease History: Reports: Chicken Pox - Past Surgical History HEENT Surgical History: Reports: Cataract Surgery Male Surgical History: Reports: Lithotripsy (ESWL) Social & Family History - Tobacco Use Tobacco Use Status *Q: Never Tobacco User Second Hand Smoke Exposure: No - Caffeine Use Caffeine Use: Reports: Soda Other Caffeine Use: every once in awhile - Recreational Drug Use Recreational Drug Use: No ED ROS GENERAL - Review of Systems Review Of Systems: Comprehensive ROS is negative, except as noted in HPI. ED EXAM,LOWER BACK PAIN/INJURY - Physical Exam Exam: See Below Exam Limited By: Other (Difficulty following converstation) General Appearance: Alert, WD/WN, Mild Distress (due to bilateral leg weakness and unable to get out of car last night. ), Severe Distress Eye Exam: Bilateral Eye: Normal Inspection Ears: Hearing Grossly Normal Nose: Normal Inspection Throat/Mouth: Normal Inspection, Normal Lips, No Airway Compromise Head: Atraumatic Neck: Normal Inspection, Non-Tender, Full Range of Motion Respiratory/Chest: No Respiratory Distress, Lungs Clear, Normal Breath Sounds Cardiovascular: Normal Peripheral Pulses, Regular Rate, Rhythm GI/Abdominal: Normal Bowel Sounds, Soft, Non-Tender Back Exam: Normal Inspection, Full Range of Motion Extremities: Normal Inspection, Normal Range of Motion (right leg weakness which may be due to lower abdominal weakness. ) Neurological: Alert, CN II-XII Intact, Normal Gait (Guarded), Oriented x 3, Ataxia (slight but [id number] baseline) Psychiatric: Normal Affect, Normal Mood Skin Exam: Warm, Dry, Intact, Normal Color Course - Vital Signs Last Recorded V/S: Last Vital Signs Temp 36.6 C 06/10/21 10:59 Pulse 116 H 06/10/21 11:30 Resp 20 06/10/21 13:28 BP 144/87 H 06/10/21 13:28 Pulse Ox 92 L 06/10/21 13:28 - Orders/Labs/Meds Orders: Active Orders 24 hr Category Date Time Status Peripheral IV Care [RC] . DIRECTED Care 06/10/21 12:17 Active Sodium Chloride 0.9% [Saline Flush] Med 06/10/21 12:17 Active 10 ml FLUSH ASDIRECTED PRN Peripheral IV Insertion Adult [OM.PC] Urgent Oth 06/10/21 12:17 Ordered Medication Orders Sodium Chloride (Sodium Chloride 0.9% 10 Ml Syringe) 10 ml FLUSH ASDIRECTED PRN PRN Reason: Keep Vein Open Labs: Laboratory Tests 06/10/21 06/10/21 06/10/21 Range/Units 12:25 12:25 12:25 WBC 11.9 H (4.5-11.0) K/uL RBC 5.07 (4.30-5.90) M/uL Hgb 14.1 D (12.0-15.0) g/dL Hct 41.3 (40.0-54.0) % MCV 82 (80-98) fL MCH 28 (27-31) pg MCHC 34 (32-36) % Plt Count 253 (150-400) K/uL Neut % (Auto) 74.5 H (36-66) % Lymph % (Auto) 10.6 L (24-44) % [place] % (Auto) 14.7 H (2-6) % Eos % (Auto) 0.0 L (2-4) % Baso % (Auto) 0.2 (0-1) % PT 10.8 (9.5-12.0) sec INR 0.99 (0.80-1.20) Sodium 133 L (140-148) mmol/L Potassium 4.2 (3.6-5.2) mmol/L Chloride 96 L (100-108) mmol/L Carbon Dioxide 23 (21-32) mmol/L Anion Gap 18.2 H (5.0-14.0) mmol/L BUN 16 (7-18) mg/dL Creatinine 1.3 (0.8-1.3) mg/dL Est Cr Clr Drug Dosing 54.38 mL/min Estimated GFR (MDRD) 56 L (>60) Glucose 112 H (74-106) mg/dL Calcium 8.8 (8.5-10.1) mg/dL Total Bilirubin 0.6 (0.2-1.0) mg/dL AST 171 H D (15-37) U/L ALT 71 D (12-78) U/L Alkaline Phosphatase 96 D (46-116) U/L C-Reactive Protein 6.18 H (0.0-0.3) mg/dL Total Protein 6.9 (6.4-8.2) g/dL Albumin 2.9 L (3.4-5.0) g/dL Globulin 4.0 H (2.3-3.5) g/dL Albumin/Globulin Ratio 0.7 L (1.2-2.2) SARS CoV-2 RNA Rapid TIFFANIE 06/10/21 Range/Units 12:37 WBC (4.5-11.0) K/uL RBC (4.30-5.90) M/uL Hgb (12.0-15.0) g/dL Hct (40.0-54.0) % MCV (80-98) fL MCH (27-31) pg MCHC (32-36) % Plt Count (150-400) K/uL Neut % (Auto) (36-66) % Lymph % (Auto) (24-44) % [place] % (Auto) (2-6) % Eos % (Auto) (2-4) % Baso % (Auto) (0-1) % PT (9.5-12.0) sec INR (0.80-1.20) Sodium (140-148) mmol/L Potassium (3.6-5.2) mmol/L Chloride (100-108) mmol/L Carbon Dioxide (21-32) mmol/L Anion Gap (5.0-14.0) mmol/L BUN (7-18) mg/dL Creatinine (0.8-1.3) mg/dL Est Cr Clr Drug Dosing mL/min Estimated GFR (MDRD) (>60) Glucose (74-106) mg/dL Calcium (8.5-10.1) mg/dL Total Bilirubin (0.2-1.0) mg/dL AST (15-37) U/L ALT (12-78) U/L Alkaline Phosphatase (46-116) U/L C-Reactive Protein (0.0-0.3) mg/dL Total Protein (6.4-8.2) g/dL Albumin (3.4-5.0) g/dL Globulin (2.3-3.5) g/dL Albumin/Globulin Ratio (1.2-2.2) SARS CoV-2 RNA Rapid TIFFANIE Negative Meds: Medications Generic Name Dose Route Start Last Admin Trade Name Freq PRN Reason Stop Dose Admin Sodium Chloride 10 ml 06/10/21 12:17 Sodium Chloride 0.9% 10 Ml Syringe FLUSH ASDIRECTED PRN Keep Vein Open Discontinued Medications Generic Name Dose Route Start Last Admin Trade Name Ronald PRN Reason Stop Dose Admin Sodium Chloride 100 mls @ 3 mls/sec 06/10/21 13:00 06/10/21 14:42 Normal Saline IV 06/10/21 13:01 3 mls/sec ASDIRECTED DUANE Administration Iopamidol 100 ml 06/10/21 13:00 06/10/21 14:40 Iopamidol 755 Mg/Ml 100 Ml Bottle IV 06/10/21 13:01 100 ml . DIRECTED DUANE Administration Sodium Chloride 10 ml 06/10/21 12:57 06/10/21 14:42 Sodium Chloride 0.9% 10 Ml Syringe FLUSH 06/10/21 12:58 10 ml ONETIME ONE Administration - Re-Assessments/Exams Free Text/Narrative Re-Assessment/Exam: Fadi's renal testing completed and taken over to CT for CTA head and CT lumbar spine due to bilateral leg weakness. The CT screening was completed shortly after my assessment, which was completed by porcelain technician and Fadi declined head CT because his weakness is in his legs and has nothing to do with his head. I visited with Fadi after returning from CT and again explained that his brain tell's his legs what to do and if there is a blood in the blood flow to part of his head it can causes his legs to feel heavy and not work right. Fadi again consents to CT head for evaluation of stroke which may be reasoning for leg weakness. 06/10/21 13:45 Fadi's bilateral leg weakness has spontaneously resolved during assessment. Fadi does not feel he needs to stay in the hospital and symptoms have resolved. I discussed admission due to generalized weakness, unable to sit upright on examination table/bed btu able to get up and sit in a chair and ambulate to the bathroom without difficulty or balance concerns. Fadi requested to be discharged home after reviewing test results obtained during ER visit today. 06/10/21 16:19 Departure - Departure Time of Disposition: 16:34 Disposition: Home, Self-Care 01 Clinical Impression: TIA (transient ischemic attack), Generalized weakness - Discharge Information Instructions: Weakness, Transient Ischemic Attack Referrals: PCP,None [Primary Care Provider] - Forms: ED Department Discharge Additional Instructions: 1. Start Aspirin 81mg daily for possible TIA, bilateral LE weakness. 2. Call clinic on Friday for recheck this week with clinician. 3. Outpatient MRI may be considered for further evaluation if weakness continues to reoccur. 4. Return to ER and call 911 if return of weakness that limits your ability to walk and care for yourself. Admission to hospital discussed for further evaluation of generalized weakness if unable to take care of himself or risk of falls or injury. Sepsis Event Note (ED) - Evaluation Sepsis Screening Result: No Definite Risk - Focused Exam Vital Signs: Vital Signs Temp Pulse Resp BP Pulse Ox 06/10/21 13:28 20 144/87 H 92 L 06/10/21 11:30 116 H 26 H 132/86 91 L 06/10/21 10:59 36.6 C 121 H 19 144/93 H 99 - My Orders Last 24 Hours: My Active Orders 06/10/21 12:17 Peripheral IV Care [RC] . DIRECTED Sodium Chloride 0.9% [Saline Flush] 10 ml FLUSH ASDIRECTED PRN Peripheral IV Insertion Adult [OM.PC] Urgent - Assessment/Plan Last 24 Hours: My Active Orders 06/10/21 12:17 Peripheral IV Care [RC] . DIRECTED Sodium Chloride 0.9% [Saline Flush] 10 ml FLUSH ASDIRECTED PRN Peripheral IV Insertion Adult [OM.PC] Urgent
[2021-06-10] MEDS ORDERED: Sodium Chloride 0.9% 10 ML Syringe FLUSH PRN (12:17)
[2021-06-10] MEDS ORDERED: Sodium Chloride 0.9% 10 ML Syringe FLUSH ONE (12:57)
[2021-06-10] MEDS ORDERED: Iopamidol 755 Mg/ML 100 ML Bottle IV SCH (13:00)
[2021-06-10] MEDS ORDERED: Sodium Chloride 0.9% 100 ML IV SCH (13:00)
[2021-06-10 14:28] VITALS: BP 144/87; PULSE 116
--- NOTE | 2021-06-10 14:53 | CRLCT ---
For Patients: As a result of the Century Cures Act, medical imaging exams and procedure reports are released immediately into your electronic medical record. You may view this report before your referring provider. If you have questions, please contact your health care provider. INDICATION: Bilateral leg weakness. COMPARISON: None. TECHNIQUE: Noncontrast CT lumbar spine. FINDINGS: Trace upper lumbar curve convex to the right. In sagittal plane common normal vertebral body alignment. No fractures. No vertebral body loss of height. No spondylolisthesis. No fractures of the visualized lower ribs. No sacral fractures. T12-L1 L1-2: No spinal canal or neural foraminal narrowing. L2-3: Posterior disc bulge. No narrowing of spinal canal. No neural foraminal narrowing. L3-4: Posterior disc bulge. No narrowing of the spinal canal. No neural foraminal narrowing. L4-5: Posterior disc bulge. Flattening of ventral thecal sac. Mild narrowing of spinal canal. Facet arthropathy results in mild narrowing of bilateral foramina. L5-S1: No narrowing of spinal canal. No impingement of the traversing S1 nerve roots. No neural foraminal narrowing. Mild facet arthropathy. Degenerative changes of the SI joints. IMPRESSION: 1. Normal alignment. No fractures. 2. No sacral fractures. 3. Lumbar spondylosis 4. At L4-5, posterior disc bulge. Mild narrowing of the spinal canal and bilateral foramina 5. At L5-S1, no spinal canal or neural foraminal narrowing. Please note that all CT scans at this facility use dose modulation, iterative reconstruction, and/or weight-based dosing when appropriate to reduce radiation dose to as low as reasonably achievable. Dictated by Kirk Odonnell MD @ 06/11/2021 5:55:54 PM (Electronically Signed)
--- NOTE | 2021-06-10 15:14 | CRLCT ---
For Patients: As a result of the Cures Act, medical imaging exams and procedure reports are released immediately into your electronic medical record. You may view this report before your referring provider. If you have questions, please contact your health care provider. INDICATION: Bilateral leg weakness. TECHNIQUE: High resolution axial CT images acquired through the head following rapid intravenous administration of iodinated contrast. Multiplanar MIPS of cranial vasculature performed. FINDINGS: There is normal filling of the intracranial vasculature; i.e. there is no large vessel occlusion or intracranial stenosis. There is no cerebral aneurysm or evidence for vascular malformation. The underlying brain parenchyma is unremarkable at CTA. IMPRESSION: Unremarkable CTA head. Gorge Roblero MD [facility] [employer] [facility] Please note that all CT scans at this facility use dose modulation, iterative reconstruction, and/or weight-based dosing when appropriate to reduce radiation dose to as low as reasonably achievable. Dictated by Gorge Roblero MD @ 06/10/2021 3:12:54 PM (Electronically Signed)
== END 2021-06-10 16:55 | disposition home or self-care (01) ==
LOC: JP.ED 10:45
DX: G45.9 Transient cerebral ischemic attack, unspecified (principal); E03.9 Hypothyroidism, unspecified; Z88.0 Allergy status to penicillin; Z79.899 Other long term (current) drug therapy; Z20.822 Contact with and (suspected) exposure to COVID-19
CPT/HCPCS: 36415; 70496; 72131; 80053; 85025; 85610; 86140; 99285; Q9967; U0002

== ENCOUNTER 2022-04-18 15:34 | Inpatient (IN) | payer MEDICARE, MEDICAID ==
[2022-04-18] MEDS ORDERED: fentaNYL 100 MCG/2 ML SDV IVPUSH ONE (16:47)
[2022-04-18] MEDS ORDERED: Sodium Chloride 0.9% 10 ML Syringe FLUSH PRN (16:47)
[2022-04-18] MEDS ORDERED: Sodium Chloride 0.9% 1,000 ML IV SCH ×2 (17:00→19:45)
[2022-04-18 17:41] LABS: ESTIMATED GFR 44 mL/min (>60)
[2022-04-18] MEDS ORDERED: Enoxaparin 30 MG/0.3 ML Syringe SUBCUT SCH (20:38)
[2022-04-18] MEDS ORDERED: Albuterol/Ipratropium 3.0-0.5 MG/3 ML Neb Soln NEB PRN (20:38)
[2022-04-18] MEDS ORDERED: Albuterol 0.083% 2.5 MG/3 ML Neb Soln NEB PRN (20:38)
[2022-04-18] MEDS ORDERED: Ondansetron 4 MG Tab.DIS PO PRN (20:38)
[2022-04-18] MEDS ORDERED: Docusate Sodium 100 MG Cap PO PRN (20:38)
[2022-04-18] MEDS ORDERED: LORazepam 2 MG/ML SDV IV PRN (20:38)
[2022-04-18] MEDS ORDERED: Acetaminophen 325 MG Tab PO PRN (20:38)
[2022-04-18] MEDS ORDERED: Morphine 2 MG/ML SYRINGE IVPUSH PRN (20:38)
[2022-04-18] MEDS ORDERED: Bisacodyl 5 MG Tab PO PRN (20:38)
[2022-04-18] MEDS ORDERED: Divalproex Sodium 250 MG Tab.ER PO SCH (21:00)
[2022-04-18] MEDS ORDERED: Pantoprazole 40 MG Vial IV SCH (21:00)
[2022-04-18] MEDS ORDERED: OLANZapine 5 MG Tab PO SCH (21:00)
[2022-04-18] MEDS: Acetaminophen/HYDROcodone 325-5 MG Tab PO PRN (21:36)
[2022-04-18] MEDS: Sodium Chloride 0.9% 1,000 ML IV SCH (21:37)
[2022-04-18] MEDS: Enoxaparin 40 MG/0.4 ML Syringe SUBCUT SCH (22:34)
[2022-04-19] MEDS: Sodium Chloride 0.9% 1,000 ML IV SCH ×3 (03:23→22:56)
[2022-04-19 05:10] LABS: ESTIMATED GFR 61 mL/min (>60)
[2022-04-19] MEDS: Acetaminophen/HYDROcodone 325-5 MG Tab PO PRN (05:18)
[2022-04-19] MEDS: Levothyroxine 50 MCG Tab PO SCH (07:47)
[2022-04-19] MEDS: Pantoprazole 40 MG Tab.CR PO SCH (21:54)
[2022-04-19] MEDS: Enoxaparin 40 MG/0.4 ML Syringe SUBCUT SCH (21:54)
[2022-04-19] MEDS: Divalproex Sodium Delayed-Release 250 MG Tab.CR PO SCH (21:54)
[2022-04-19] MEDS: OLANZapine 5 MG Tab PO SCH (21:54)
[2022-04-20 05:29] LABS: ESTIMATED GFR 68 mL/min (>60)
[2022-04-20] MEDS: Levothyroxine 50 MCG Tab PO SCH (07:29)
[2022-04-20] MEDS: Sodium Chloride 0.9% 1,000 ML IV SCH ×3 (07:30→23:22)
[2022-04-20] MEDS: Acetaminophen/HYDROcodone 325-5 MG Tab PO PRN (20:10)
[2022-04-20] MEDS: Pantoprazole 40 MG Tab.CR PO SCH (20:29)
[2022-04-20] MEDS: OLANZapine 5 MG Tab PO SCH (20:29)
[2022-04-20] MEDS: Divalproex Sodium Delayed-Release 250 MG Tab.CR PO SCH (20:29)
[2022-04-21 05:16] LABS: ESTIMATED GFR 68 mL/min (>60)
[2022-04-21] MEDS: Sodium Chloride 0.9% 1,000 ML IV SCH ×3 (07:22→23:03)
[2022-04-21] MEDS: Levothyroxine 50 MCG Tab PO SCH (07:28)
[2022-04-21] MEDS: Divalproex Sodium Delayed-Release 250 MG Tab.CR PO SCH (20:14)
[2022-04-21] MEDS: Pantoprazole 40 MG Tab.CR PO SCH (20:15)
[2022-04-21] MEDS: OLANZapine 5 MG Tab PO SCH (20:15)
[2022-04-22 05:15] LABS: ESTIMATED GFR 68 mL/min (>60)
[2022-04-22] MEDS: Levothyroxine 50 MCG Tab PO SCH (08:01)
[2022-04-22] MEDS: Sodium Chloride 0.9% 1,000 ML IV SCH ×2 (09:20→21:59)
[2022-04-22] MEDS: Divalproex Sodium Delayed-Release 250 MG Tab.CR PO SCH (21:21)
[2022-04-22] MEDS: OLANZapine 5 MG Tab PO SCH (21:21)
[2022-04-22] MEDS: Pantoprazole 40 MG Tab.CR PO SCH (21:21)
[2022-04-23 05:10] LABS: ESTIMATED GFR 75 mL/min (>60)
[2022-04-23] MEDS: Levothyroxine 50 MCG Tab PO SCH (08:45)
[2022-04-23 10:39] VITALS: BP 124/74; PULSE 90
== END 2022-04-23 11:11 | disposition home health service (06) | DRG 565 ==
LOC: JP.ED 15:34 → JP.MS 19:48
PROVIDERS: ADMIT Nurse Practitioner; ATTEND Hospitalist
DX: T79.6XXA Traumatic ischemia of muscle, initial encounter (principal); F20.1 Disorganized schizophrenia; Z88.1 Allergy status to other antibiotic agents; W19.XXXA Unspecified fall, initial encounter; Z79.890 Hormone replacement therapy; Z79.899 Other long term (current) drug therapy; Z88.0 Allergy status to penicillin; H54.7 Unspecified visual loss; Z87.440 Personal history of urinary (tract) infections; F31.9 Bipolar disorder, unspecified; F41.9 Anxiety disorder, unspecified; E03.9 Hypothyroidism, unspecified; Z86.19 Personal history of other infectious and parasitic diseases; Z98.49 Cataract extraction status, unspecified eye; Z86.73 Personal history of transient ischemic attack (TIA), and cerebral infarction without residual deficits; M19.90 Unspecified osteoarthritis, unspecified site; Z20.822 Contact with and (suspected) exposure to COVID-19
CPT/HCPCS: 36415; 70450; 80053; 82550; 83605; 84145; 85025; 86140; 96361; 96374; 99285; J3010; J3490; J7030; 81001; 85027; 85610; 93010; 97110-GP; 97140-GP; 97162-GP; 97165-GO; 97530-GP; 99223; 99232; 99239; 99284; A9270-GY; C9113; J1650; U0002